=== PATIENT | male | born 2000 | race Caucasian/White ===

== ENCOUNTER 2022-11-12 22:06 | Inpatient (IN) | payer OTHER, SELFPAY ==
[2022-11-12 22:09] VITALS: BP 108/56; PULSE 149; RESP 28; TEMP 39.6; O2SAT 95; BMI 25.1
--- NOTE | 2022-11-12 22:21 | DI.RAD.S_ITS ---
PROCEDURE: XR CHEST 1V INDICATIONS: Eval for pneumonia TECHNIQUE: One view of the chest was acquired. COMPARISON: None. FINDINGS: Surgical changes and devices: None. Lungs and pleura: Lungs are clear. No pleural effusions or pneumothorax. Mediastinum: Mediastinal contours appear normal. Heart size is normal. Bones and chest wall: No suspicious bony lesions. Overlying soft tissues appear unremarkable. IMPRESSION: 1. No acute cardiopulmonary disease. Dictated by: Ru Tyler M.D. on 11/12/2022 at 23:19 Approved by: Ru Tyler M.D. on 11/12/2022 at 23:20
[2022-11-12] MEDS: IBUPROFEN 400 MG TABLET 800 MG PO (22:34)
[2022-11-12] MEDS: SODIUM CHLORIDE 0.9% 1,000 ML 1000 ML IV ×2 (22:34→23:37)
[2022-11-12 22:56] VITALS: PULSE 143; O2SAT 94
--- NOTE | 2022-11-12 22:56 | ED_ITS ---
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 This was diagnosed when he was 11 years old after presenting with fevers and joint pain. He was admitted to the hospital for several days. Had an ICU stay. 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 Patient was followed by pediatric Rheumatology at [facility]. Was on immunosuppressants for period of time but subsequently these were discontinued it he has not been on any immunosuppressant since 2012. He has also subsequently been discharged from the pediatric rheuma tology clinic. 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 He does have a history of asthma. Is on daily medications for this. Is here for evaluation of approximately 5 days of fevers and body aches. He is not having any joint pain. He does have a sore throat and a slight headache but no neck pain. No chest pain. Does have a cough. No abdominal pain. No nausea vomiting. No urinary symptoms. No change in bowel habits. No skin rashes. Patient has been taking Tylenol and ibuprofen. He was seen at an outside facility a couple days ago where he was tested for COVID/flu which were negative. He is not on any antibiotics. Comes in the emergency department today because he is had continu ed symptoms in his starting to feel worse. Related Data Allergies Allergy/AdvReac Type Severity Reaction Status Date / Time egg Allergy Anaphylaxis Verified 11/12/22 22:09 lorazepam [From Ativan] Allergy Hallucinati Verified 11/12/22 22:09 ng Review of Systems Review of Systems ROS Unobtainable: All systems reviewed & are unremarkable except as noted in HPI and below Patient History Medical History (Updated 11/13/22 @ 03:47 by Stalin Singh DO) Asthma Juvenile idiopathic arthritis Social History Smoking Status: Never smoker Smoking Status: Never smoker alcohol intake frequency: holidays/special occasions only Substance Use Type: does not use Exam Initial Vital Signs Initial Vital Signs: Vital Signs Temperature 103.2 F H 11/12/22 22:09 Pulse Rate 149 H 11/12/22 22:09 Respiratory Rate 28 H 11/12/22 22:09 Blood Pressure 108/56 L 11/12/22 22:09 Pulse Oximetry 95 11/12/22 22:09 Oxygen Delivery Method 11/12/22 22:09 Const General: cooperative, comfortable and No ill appearing HENMT Head: normal to inspection and normocephalic Chest Chest: normal inspection of the chest Resp Effort & Inspection: no respiratory distress and tachypneic Auscultation: clear to auscultation bilaterally Cardio Rate: tachycardic Rhythm: regular rhythm GI Inspection: normal to inspection Palpation: soft, No firm and No tender Skin General: no rashes or lesions noted Lesions: no lesions Neuro General: patient alert, patient awake, patient oriented x3 and moves all extremities Cognition: normal cognition Speech: speech normal Gait: normal gait Extrem General: normal to inspection and capillary refill normal Psych Appearance: grossly normal and well kempt Scores GCS Mai coma scale eye opening: Spontaneous Bledsoe coma scale verbal response: Orientated Ami coma scale motor response: Obey commands Bledsoe coma scale total score: 15 Course Orders Ordered: ED Orders 11/12/22 22:21 XR chest 1V Stat EKG-12 Lead Stat 11/12/22 23:00 Urinalysis and Microscopic Stat Urine Culture Stat 11/12/22 23:02 Respiratory Panel (Film Array) Stat 11/12/22 23:09 Complete Blood Count AUTO DIFF Stat Comprehensive Metabolic Panel Stat Lactate (Lactic Acid) Stat Lipase Stat Procalcitonin Stat 11/12/22 23:11 Blood Culture Stat 11/13/22 00:11 Ferritin Stat 11/13/22 00:12 LDH [Lactate Dehydrogenase] Stat Partial Thromboplastin Time Stat Prothrombin Time INR Stat 11/13/22 00:13 D Dimer Stat 11/13/22 00:14 Fibrinogen Stat Vancomycin HCl (Vancomycin) 1,000 mg in 200 mls @ 200 mls/hr IV NOW ONE Stop: 11/13/22 04:38 Discontinued Medications Sodium Chloride (Normal Saline 0.9%) 1,000 mls @ 1,000 mls/hr IV BOLUS ONE Stop: 11/12/22 23:18 Last Infusion: 11/12/22 23:35 Dose: 0 mls/hr Documented By: Admin: 11/12/22 22:34 Dose: 1,000 mls/hr Documented By: TETE Ceftriaxone Sodium 1,000 mg/ (Sodium Chloride) 100 mls @ 200 mls/hr IV NOW ONE Stop: 11/12/22 23:19 Last Infusion: 11/12/22 23:59 Dose: 0 mls/hr Documented By: Admin: 11/12/22 23:28 Dose: 200 mls/hr Documented By: TETE Sodium Chloride (Normal Saline 0.9%) 1,000 mls @ 1,000 mls/hr IV BOLUS ONE Stop: 11/13/22 00:28 Last Infusion: 11/13/22 00:36 Dose: 0 mls/hr Documented By: Admin: 11/12/22 23:37 Dose: 1,000 mls/hr Documented By: TETE Ibuprofen (Ibuprofen 400 Mg Tablet) 800 mg PO NOW ONE Stop: 11/12/22 22:20 Last Admin: 11/12/22 22:34 Dose: 800 mg Documented By: TETE Vital Signs Vital signs: Vital Signs - 8 hr 11/12/22 22:09 11/12/22 23:39 11/12/22 23:40 Temperature 103.2 F H 100.5 F H 100.5 F H Pulse Rate 149 H Respiratory Rate 28 H Blood Pressure 108/56 L Pulse Oximetry 95 Oxygen Delivery Method Room Air 11/12/22 22:56 11/12/22 23:00 11/12/22 23:30 Temperature Pulse Rate 143 H 136 H 135 H Respiratory Rate Blood Pressure Pulse Oximetry 94 96 94 Oxygen Delivery Method 11/13/22 00:00 11/13/22 00:04 11/13/22 00:04 Temperature Pulse Rate 124 H 125 H Respiratory Rate 21 22 Blood Pressure 106/52 L Pulse Oximetry 94 94 Oxygen Delivery Method 11/13/22 00:30 11/13/22 00:30 11/13/22 01:00 Temperature Pulse Rate 121 H Respiratory Rate 21 Blood Pressure 104/50 L 111/52 L Pulse Oximetry 94 Oxygen Delivery Method 11/13/22 01:00 11/13/22 01:30 11/13/22 01:30 Temperature Pulse Rate 122 H 118 H Respiratory Rate 22 21 Blood Pressure 100/55 L Pulse Oximetry 94 94 Oxygen Delivery Method 11/13/22 01:41 Temperature Pulse Rate 113 H Respiratory Rate Blood Pressure Pulse Oximetry Oxygen Delivery Method Medical Decision Making Medical Records Medical records reviewed: Yes I reviewed the patient's medical records. Lab Data Lab results reviewed: Yes I reviewed the patient's lab results. 11/12/22 23:09 11/12/22 23:09 Labs: Lab Results 11/12/22 11/12/22 11/12/22 Range/Units 23:00 23:02 23:09 WBC 6.7 (4.5-11.0) X10^3/uL RBC 3.96 L (4.5-5.9) X10^6/uL Hgb 11.8 L (13.5-17.5) g/dL Hct 35.3 L (41-53) % MCV 89.1 (80-100) fL MCH 29.9 (26-34) PG MCHC 33.5 (30-36) % RDW 12.9 (11.6-14.8) % Plt Count 168 (150-400) X10^3/uL Neut % (Auto) Not Reportable Lymph % (Auto) Not Reportable Dauphin % (Auto) Not Reportable Eos % (Auto) Not Reportable Baso % (Auto) Not Reportable Lymph # (Auto) Not Reportable Da[place]hin # (Auto) Not Reportable Baso # (Auto) Not Reportable Total Counted 100 Seg Neutrophils % 72.0 H (38-70) % Band Neutrophils % 7.0 (3-7) % Lymphocytes % (Manual) 11.0 L (25-45) % Monocytes % (Manual) 8.0 (2-11) % Eosinophils % (Manual) 2.0 (2-4) % Neutrophils # (Manual) 5293 (9649-5106) /uL RBC Morphology Normal morphology PT (10.1-12.7) SECONDS INR (0.9-1.3) APTT (26-36) SECONDS Fibrinogen (211-428) mg/dL D-Dimer (<500) ng/ml Sodium (137-145) mmol/L Potassium (3.4-5.1) mmol/L Chloride (98-107) mmol/L Carbon Dioxide (22-32) mmol/L BUN (9-20) mg/dL Creatinine (0.66-1.25) mg/dL Estimated GFR (>60) mL/min BUN/Creatinine Ratio (6-22) Glucose (70-100) mg/dL Lactate (0.7-2.1) mmol/L Calcium (8.4-10.2) mg/dL Ferritin (18-464) ng/mL Total Bilirubin (0.2-1.3) mg/dL AST (17-59) IU/L ALT (<50) IU/L Alkaline Phosphatase (38-126) U/L Lactate Dehydrogenase (120-246) U/L Total Protein (6.3-8.2) g/dL Albumin (3.5-5.0) g/dL Globulin (1.7-4.1) g/dL Albumin/Globulin Ratio (1.0-2.8) Lipase (23-300) U/L Procalcitonin (<0.5) ng/mL Urine Color Yellow Urine Appearance Clear Urine pH 6.5 (4.5-8.0) Ur Specific Malone 1.010 (1.000-1.035) Urine Protein Negative (Negative) Urine Glucose (UA) Negative (Negative) g/dL Urine Ketones Negative (NEGATIVE) Urine Occult Blood Negative (Negative) Urine Nitrate Negative (Negative) Urine Bilirubin Negative (NEGATIVE) Urine Urobilinogen 4.0 H (0.2) E.U./dL Ur Leukocyte Esterase Negative (NEGATIVE) Urine RBC 0-1/hpf (0-5/HPF) Urine WBC None seen (0-5/HPF) Ur Squamous Epith Cells 0-1 /hpf (0-5/HPF) Amorphous Sediment 1+ Urine Bacteria Occasional (0-1) (None) Chlamy pneumoniae PCR Not detected (Not Detect) Adenovirus (PCR) Not detected (Not Detect) B. pertussis DNA (PCR) Not detected (Not Detecte) B.parapertussis DNA PCR Not detected (Not Detecte) Coronavirus OC43 (PCR) Not detected (Not Detect) Coronavirus HKU1 (PCR) Not detected (Not Detect) Coronavirus 229E (PCR) Not detected (Not Detect) SARS-CoV-2 (PCR) Not detected (Not Detecte) Coronavirus NL63 (PCR) Not detected (Not Detect) Human Metapneumovir PCR Not detected (Not Detect) Influenza Type A (PCR) Not detected (Not Detect) Influenza Type B (PCR) Not detected (Not Detect) M. pneumoniae (PCR) Not detected (Not Detect) Parainfluenza 1 (PCR) Not detected (Not Detect) Parainfluenza 2 (PCR) Not detected (Not Detect) Parainfluenza 3 (PCR) Not detected (Not Detect) Parainfluenza 4 (PCR) Not detected (Not Detect) RSV (PCR) Not detected (Not Detect) Entero/Rhino (PCR) Not detected (Not Detect) 11/12/22 11/12/22 11/12/22 Range/Units 23:09 23:09 23:09 WBC (4.5-11.0) X10^3/uL RBC (4.5-5.9) X10^6/uL Hgb (13.5-17.5) g/dL Hct (41-53) % MCV (80-100) fL MCH (26-34) PG MCHC (30-36) % RDW (11.6-14.8) % Plt Count (150-400) X10^3/uL Neut % (Auto) Lymph % (Auto) Dauphin % (Auto) Eos % (Auto) Baso % (Auto) Lymph # (Auto) Dauphin # (Auto) Baso # (Auto) Total Counted Seg Neutrophils % (38-70) % Band Neutrophils % (3-7) % Lymphocytes % (Manual) (25-45) % Monocytes % (Manual) (2-11) % Eosinophils % (Manual) (2-4) % Neutrophils # (Manual) (4022-3796) /uL RBC Morphology PT (10.1-12.7) SECONDS INR (0.9-1.3) APTT (26-36) SECONDS Fibrinogen (211-428) mg/dL D-Dimer (<500) ng/ml Sodium 137 (137-145) mmol/L Potassium 3.4 (3.4-5.1) mmol/L Chloride 103 (98-107) mmol/L Carbon Dioxide 25 (22-32) mmol/L BUN 12 (9-20) mg/dL Creatinine 0.98 (0.66-1.25) mg/dL Estimated GFR > 60 (>60) mL/min BUN/Creatinine Ratio 12.2 (6-22) Glucose 134 H (70-100) mg/dL Lactate 1.0 (0.7-2.1) mmol/L Calcium 7.9 L (8.4-10.2) mg/dL Ferritin (18-464) ng/mL Total Bilirubin 0.4 (0.2-1.3) mg/dL AST 24 (17-59) IU/L ALT 17 (<50) IU/L Alkaline Phosphatase 84 (38-126) U/L Lactate Dehydrogenase (120-246) U/L Total Protein 5.9 L (6.3-8.2) g/dL Albumin 3.2 L (3.5-5.0) g/dL Globulin 2.7 (1.7-4.1) g/dL Albumin/Globulin Ratio 1.2 (1.0-2.8) Lipase 30 (23-300) U/L Procalcitonin 3.70 H (<0.5) ng/mL Urine Color Urine Appearance Urine pH (4.5-8.0) Ur Specific Malone (1.000-1.035) Urine Protein (Negative) Urine Glucose (UA) (Negative) g/dL Urine Ketones (NEGATIVE) Urine Occult Blood (Negative) Urine Nitrate (Negative) Urine Bilirubin (NEGATIVE) Urine Urobilinogen (0.2) E.U./dL Ur Leukocyte Esterase (NEGATIVE) Urine RBC (0-5/HPF) Urine WBC (0-5/HPF) Ur Squamous Epith Cells (0-5/HPF) Amorphous Sediment Urine Bacteria (None) Chlamy pneumoniae PCR (Not Detect) Adenovirus (PCR) (Not Detect) B. pertussis DNA (PCR) (Not Detecte) B.parapertussis DNA PCR (Not Detecte) Coronavirus OC43 (PCR) (Not Detect) Coronavirus HKU1 (PCR) (Not Detect) Coronavirus 229E (PCR) (Not Detect) SARS-CoV-2 (PCR) (Not Detecte) Coronavirus NL63 (PCR) (Not Detect) Human Metapneumovir PCR (Not Detect) Influenza Type A (PCR) (Not Detect) Influenza Type B (PCR) (Not Detect) M. pneumoniae (PCR) (Not Detect) Parainfluenza 1 (PCR) (Not Detect) Parainfluenza 2 (PCR) (Not Detect) Parainfluenza 3 (PCR) (Not Detect) Parainfluenza 4 (PCR) (Not Detect) RSV (PCR) (Not Detect) Entero/Rhino (PCR) (Not Detect) 11/12/22 11/12/22 11/12/22 Range/Units 23:09 23:09 23:09 WBC (4.5-11.0) X10^3/uL RBC (4.5-5.9) X10^6/uL Hgb (13.5-17.5) g/dL Hct (41-53) % MCV (80-100) fL MCH (26-34) PG MCHC (30-36) % RDW (11.6-14.8) % Plt Count (150-400) X10^3/uL Neut % (Auto) Lymph % (Auto) Dauphin % (Auto) Eos % (Auto) Baso % (Auto) Lymph # (Auto) Dauphin # (Auto) Baso # (Auto) Total Counted Seg Neutrophils % (38-70) % Band Neutrophils % (3-7) % Lymphocytes % (Manual) (25-45) % Monocytes % (Manual) (2-11) % Eosinophils % (Manual) (2-4) % Neutrophils # (Manual) (4052-5903) /uL RBC Morphology PT 14.8 H (10.1-12.7) SECONDS INR 1.3 (0.9-1.3) APTT 29 (26-36) SECONDS Fibrinogen (211-428) mg/dL D-Dimer (<500) ng/ml Sodium (137-145) mmol/L Potassium (3.4-5.1) mmol/L Chloride (98-107) mmol/L Carbon Dioxide (22-32) mmol/L BUN (9-20) mg/dL Creatinine (0.66-1.25) mg/dL Estimated GFR (>60) mL/min BUN/Creatinine Ratio (6-22) Glucose (70-100) mg/dL Lactate (0.7-2.1) mmol/L Calcium (8.4-10.2) mg/dL Ferritin 1480 H (18-464) ng/mL Total Bilirubin (0.2-1.3) mg/dL AST (17-59) IU/L ALT (<50) IU/L Alkaline Phosphatase (38-126) U/L Lactate Dehydrogenase 235 (120-246) U/L Total Protein (6.3-8.2) g/dL Albumin (3.5-5.0) g/dL Globulin (1.7-4.1) g/dL Albumin/Globulin Ratio (1.0-2.8) Lipase (23-300) U/L Procalcitonin (<0.5) ng/mL Urine Color Urine Appearance Urine pH (4.5-8.0) Ur Specific Malone (1.000-1.035) Urine Protein (Negative) Urine Glucose (UA) (Negative) g/dL Urine Ketones (NEGATIVE) Urine Occult Blood (Negative) Urine Nitrate (Negative) Urine Bilirubin (NEGATIVE) Urine Urobilinogen (0.2) E.U./dL Ur Leukocyte Esterase (NEGATIVE) Urine RBC (0-5/HPF) Urine WBC (0-5/HPF) Ur Squamous Epith Cells (0-5/HPF) Amorphous Sediment Urine Bacteria (None) Chlamy pneumoniae PCR (Not Detect) Adenovirus (PCR) (Not Detect) B. pertussis DNA (PCR) (Not Detecte) B.parapertussis DNA PCR (Not Detecte) Coronavirus OC43 (PCR) (Not Detect) Coronavirus HKU1 (PCR) (Not Detect) Coronavirus 229E (PCR) (Not Detect) SARS-CoV-2 (PCR) (Not Detecte) Coronavirus NL63 (PCR) (Not Detect) Human Metapneumovir PCR (Not Detect) Influenza Type A (PCR) (Not Detect) Influenza Type B (PCR) (Not Detect) M. pneumoniae (PCR) (Not Detect) Parainfluenza 1 (PCR) (Not Detect) Parainfluenza 2 (PCR) (Not Detect) Parainfluenza 3 (PCR) (Not Detect) Parainfluenza 4 (PCR) (Not Detect) RSV (PCR) (Not Detect) Entero/Rhino (PCR) (Not Detect) 11/12/22 11/12/22 Range/Units 23:09 23:09 WBC (4.5-11.0) X10^3/uL RBC (4.5-5.9) X10^6/uL Hgb (13.5-17.5) g/dL Hct (41-53) % MCV (80-100) fL MCH (26-34) PG MCHC (30-36) % RDW (11.6-14.8) % Plt Count (150-400) X10^3/uL Neut % (Auto) Lymph % (Auto) Dauphin % (Auto) Eos % (Auto) Baso % (Auto) Lymph # (Auto) Dauphin # (Auto) Baso # (Auto) Total Counted Seg Neutrophils % (38-70) % Band Neutrophils % (3-7) % Lymphocytes % (Manual) (25-45) % Monocytes % (Manual) (2-11) % Eosinophils % (Manual) (2-4) % Neutrophils # (Manual) (0736-8179) /uL RBC Morphology PT (10.1-12.7) SECONDS INR (0.9-1.3) APTT (26-36) SECONDS Fibrinogen 679 H (211-428) mg/dL D-Dimer 4454 H (<500) ng/ml Sodium (137-145) mmol/L Potassium (3.4-5.1) mmol/L Chloride (98-107) mmol/L Carbon Dioxide (22-32) mmol/L BUN (9-20) mg/dL Creatinine (0.66-1.25) mg/dL Estimated GFR (>60) mL/min BUN/Creatinine Ratio (6-22) Glucose (70-100) mg/dL Lactate (0.7-2.1) mmol/L Calcium (8.4-10.2) mg/dL Ferritin (18-464) ng/mL Total Bilirubin (0.2-1.3) mg/dL AST (17-59) IU/L ALT (<50) IU/L Alkaline Phosphatase (38-126) U/L Lactate Dehydrogenase (120-246) U/L Total Protein (6.3-8.2) g/dL Albumin (3.5-5.0) g/dL Globulin (1.7-4.1) g/dL Albumin/Globulin Ratio (1.0-2.8) Lipase (23-300) U/L Procalcitonin (<0.5) ng/mL Urine Color Urine Appearance Urine pH (4.5-8.0) Ur Specific Malone (1.000-1.035) Urine Protein (Negative) Urine Glucose (UA) (Negative) g/dL Urine Ketones (NEGATIVE) Urine Occult Blood (Negative) Urine Nitrate (Negative) Urine Bilirubin (NEGATIVE) Urine Urobilinogen (0.2) E.U./dL Ur Leukocyte Esterase (NEGATIVE) Urine RBC (0-5/HPF) Urine WBC (0-5/HPF) Ur Squamous Epith Cells (0-5/HPF) Amorphous Sediment Urine Bacteria (None) Chlamy pneumoniae PCR (Not Detect) Adenovirus (PCR) (Not Detect) B. pertussis DNA (PCR) (Not Detecte) B.parapertussis DNA PCR (Not Detecte) Coronavirus OC43 (PCR) (Not Detect) Coronavirus HKU1 (PCR) (Not Detect) Coronavirus 229E (PCR) (Not Detect) SARS-CoV-2 (PCR) (Not Detecte) Coronavirus NL63 (PCR) (Not Detect) Human Metapneumovir PCR (Not Detect) Influenza Type A (PCR) (Not Detect) Influenza Type B (PCR) (Not Detect) M. pneumoniae (PCR) (Not Detect) Parainfluenza 1 (PCR) (Not Detect) Parainfluenza 2 (PCR) (Not Detect) Parainfluenza 3 (PCR) (Not Detect) Parainfluenza 4 (PCR) (Not Detect) RSV (PCR) (Not Detect) Entero/Rhino (PCR) (Not Detect) Imaging Data Chest x-ray: Radiologist's Impression: No acute abnormality ECG Data Attestation: I personally reviewed and interpreted this ECG as follows: Interpretation: Sinus tachycardia Ventricular rate 140 Normal axis Normal QRS Normal QTC No ST T wave changes MDM Narrative Medical decision making narrative: Prior to the patient's arrival I received a phone call from who is the patient's prior dialysis biomed technician who informed me of his prior rheumatologic diagnosis and was able to send prior notes from his visit several years ago in hospital stay. Today in the emergency department the patient arrived tachycardic and febrile. Was not hypotensive. But a GCS of 15. Blood cultures were obtained. Labs obtained. Antibiotics started. Patient did receive fluids but not to the 30 cc/kilogram of fluid because he had a normal lactate and was mentating appropriately. Patient was also tolerating oral intake. No definitive source of infection found. Patient does not have any findings consistent with meningitis, pneumonia, intra-abdominal pathology, skin rash or urinary tract infection. His respiratory panel was negative. Lungs were clear. No wheezing despite his history of asthma. Patient has a normal white count and normal lactate but does have an elevated procalcitonin. Patient does have normal LFTs but does have a elevation in his ferritin and fibrinogen and D- dimer. D-dimer was ordered for further evaluation of his potential rheumatologic issue not because of a concern for pulmonary embolism. I did have a discussion with Dr. Hutchison with rheumatology at the [facility]. I discussed the patient's case with him. We discussed his labs. He stated that since the patient is not on any immunosuppressant medication given his labs today he recommended treating the patient like any other non immunocompromised individuals in this situation. That would mean this case blood cultures and antibiotics until either a source of infection is found or blood cultures were negative and the patient started to feel better. He did not recommend starting any steroids. He recommended following the patient's LFTs and ferritin and white blood cell count. He stated that someone with MAC elevations in his LFTs, elevations in his ferritin and a decreasing white blood cell count would be the 1st indication that potentially he is having MAC. Patient does require admission to the hospital for further evaluation and treatment. Discussed the need for admission with the patient and his mother who is at bedside. They expressed understanding. I then discussed the case with SANDOR Lizama the [facility] hospital provider who will admit for further evaluation and treatment. Discharge Plan Departure Patient Disposition: Admitted As Inpatient Clinical Impression: Fever of unknown origin Admit Date/Time: 11/13/22 03:40
[2022-11-12 23:00] VITALS: PULSE 136; O2SAT 96
[2022-11-12] MEDS: cefTRIAXone 1,000 MG in SODIUM CHLORIDE 0.9% 100 ML 200 MG IV (23:28)
[2022-11-12 23:30] VITALS: PULSE 135; O2SAT 94
[2022-11-12 23:36] LABS: Alanine Aminotransferase 17 IU/L (<50); Albumin 3.2 g/dL (3.5-5.0); Albumin Globulin Ratio 1.2 (1.0-2.8); Alkaline Phosphatase 84 U/L (38-126); Aspartate Aminotransferase 24 IU/L (17-59); BUN Creatinine Ratio 12.2 (6-22); Bilirubin Total 0.4 mg/dL (0.2-1.3); Blood Urea Nitrogen 12 mg/dL (9-20); Calcium 7.9 mg/dL (8.4-10.2); Carbon Dioxide 25 mmol/L (22-32); Chloride 103 mmol/L (98-107); Estimated Glomerular Filt Rate > 60 mL/min (>60); Globulin 2.7 g/dL (1.7-4.1); Glucose 134 mg/dL (70-100); HEMOLYSIS < 15 (0-50); Potassium 3.4 mmol/L (3.4-5.1); Sodium 137 mmol/L (137-145); Total Protein 5.9 g/dL (6.3-8.2)
[2022-11-12 23:37] LABS: Add Manual Diff / Slide Review YES; Hematocrit 35.3 % (41-53); Hemoglobin 11.8 g/dL (13.5-17.5); Mean Corpuscular HGB Conc 33.5 % (30-36); Mean Corpuscular Hemoglobin 29.9 PG (26-34); Mean Corpuscular Volume 89.1 fL (80-100); Platelet Count 168 X10^3/uL (150-400); Red Blood Cell Count 3.96 X10^6/uL (4.5-5.9); Red Cell Distribution Width 12.9 % (11.6-14.8); White Blood Cell Count 6.7 X10^3/uL (4.5-11.0)
[2022-11-12 23:39] VITALS: TEMP 38.1
[2022-11-12 23:40] VITALS: TEMP 38.1
[2022-11-12 23:47] LABS: Appearance Urine UA CLEAR; Bilirubin Urine UA NEGATIVE (NEGATIVE); Color Urine UA YELLOW; Glucose Urine UA NEGATIVE (Negative); Ketones Urine UA NEGATIVE (NEGATIVE); Leukocyte Esterase Urine UA NEGATIVE (NEGATIVE); Nitrite Urine UA NEGATIVE (Negative); Occult Blood Urine UA NEGATIVE (Negative); Protein Urine UA NEGATIVE (Negative); pH Urine UA 6.5 (4.5-8.0)
[2022-11-12 23:54] LABS: RBC Urine 0-1/HPF (0-5/HPF); Squamous Epithelial Cell Urine 0-1 /HPF (0-5/HPF); WBC Urine None Seen (0-5/HPF)
[2022-11-12 23:55] LABS: Amorphous Sediment Urine 1+; Bacteria Urine Occasional (0-1)
[2022-11-12 23:59] LABS: Adenovirus Not Detected (Not Detect); B. parapertussis Not Detected (Not Detecte); Bordetella pertussis Not Detected (Not Detecte); Chlamydophila pneumoniae Not Detected (Not Detect); Coronavirus 229E Not Detected (Not Detect); Coronavirus HKU1 Not Detected (Not Detect); Coronavirus NL 63 Not Detected (Not Detect); Coronavirus OC43 Not Detected (Not Detect); Human Metapneumovirus Not Detected (Not Detect); Human Rhinovirus/Enterovirus Not Detected (Not Detect); Influenza A Not Detected (Not Detect); Influenza B Not Detected (Not Detect); Mycoplasma pneumoniae Not Detected (Not Detect); Parainfluenza Virus 1 Not Detected (Not Detect); Parainfluenza Virus 2 Not Detected (Not Detect); Parainfluenza Virus 3 Not Detected (Not Detect); Parainfluenza Virus 4 Not Detected (Not Detect); Respiratory Syncytial Virus Not Detected (Not Detect); SARS- CoV-2 Not Detected (Not Detecte)
[2022-11-13] VITALS (50 sets, daily range): BP systolic 82–127; BP diastolic 48–70; PULSE 102–148; RESP 17–37; TEMP 36.9–38.1; O2SAT 90–99; BMI 25.9
[2022-11-13 00:08] LABS: Neutrophils Absolute Manual 5293 /uL (3000-5900); RBC Morphology Normal Morphology; Total Cells Counted 100
[2022-11-13 00:24] LABS: INR 1.3 (0.9-1.3); Prothrombin Time 14.8 SECONDS (10.1-12.7)
[2022-11-13 00:27] LABS: PTT Partial Thromboplastin Tim 29 SECONDS (26-36)
[2022-11-13 00:31] LABS: Lipase 30 U/L (23-300)
[2022-11-13 00:32] LABS: Lactate Dehydrogenase 235 U/L (120-246)
[2022-11-13 00:37] LABS: Fibrinogen 679 mg/dL (211-428)
[2022-11-13 00:51] LABS: D Dimer 4454 ng/ml (<500)
[2022-11-13 02:05] LABS: Ferritin 1480 ng/mL (18-464)
[2022-11-13] MEDS: VANCOMYCIN 1,000 MG/200 ML PIGGYBACK 200 MG IV (03:59)
--- NOTE | 2022-11-13 04:41 | DI.ECHO.S_ITS ---
[facility] +---------+ : : [address] [place] : : : : [id number] : : : : Phone: [phone] Echocardiogram Report + + :Name: SIMRAN FIGUEROA Study Date: 11/13/2022 Height: 69 in : [facility] ReadingLocation: Weight: 170 lb : : Gender: Male BSA: 1.9 m2 : :: 2000 Age: 22 yrs BP: 103/51 mmHg: :Reason For Study: FEVER, IDIOPATHIC JUVENILE ARTHRITIS : :Ordering Physician: ANDREA, : :SPEEDY Performed By: MARITZA THORNE : :Referring: SPEEDY MENDEZ : + + Interpretation Summary Likely sinus tachycardia with heart rate 115-130 bpm however atrial tachycardia cannot be ruled out. The left ventricle is normal in size. Left ventricular ejection fraction is estimated to be 50 +/- 5%. The right ventricle is borderline dilated. The right ventricular systolic function is normal. No significant valvular pathology seen. The IVC is of normal diameter and collapses greater than 50% with a sniff. This suggests a low right atrial pressure of 3 mm Hg. No obvious valvular vegetation seen. If clinical suspicion for endocarditis is high, consider YESSY. Procedure: A two-dimensional transthoracic echocardiogram with color flow and Doppler was performed. There is no prior echocardiogram noted for this patient. The study quality was technically adequate. The heart rate ranged between 115-130 bpm during the study. Likely sinus tachycardia with heart rate 115-130 bpm however atrial tachycardia cannot be ruled out. Left Ventricle: The left ventricle is normal in size. There is normal left ventricular wall thickness. There is no thrombus. Left ventricular systolic function is mildly reduced. Left ventricular ejection fraction is estimated to be 50 +/- 5%. There are no focal wall motion abnormalities. Diastolic function could not be accurately assessed due to tachycardia. Right Ventricle: The right ventricle is borderline dilated. The right ventricular systolic function is normal. Atria: The left atrial size is normal. The right atrium is normal in size. There is no Doppler evidence for an interatrial shunt. Mitral Valve: The mitral valve is normal. There is trace mitral regurgitation. Aortic Valve: The aortic valve is normal in structure and function. The aortic valve is trileaflet. There is no aortic valve stenosis. No aortic regurgitation is present. Tricuspid Valve: The tricuspid valve is normal in structure and function. There is trace tricuspid regurgitation. The right ventricular systolic pressure is estimated to be at least 24 mmHg based on an estimated right atrial pressure of 3 mm Hg. Pulmonic Valve: The pulmonic valve leaflets are thin and pliable; valve motion is normal. There is mild pulmonic regurgitation. Great Vessels: The aortic root is normal size. The aortic arch could not be visualized. The IVC is of normal diameter and collapses greater than 50% with a sniff. This suggests a low right atrial pressure of 3 mm Hg. Pericardium/ Pleura There is no pericardial effusion. There is no pleural effusion. MMode/2D Measurements & Calculations LVIDd: 4.9 cm LVOT diam: 2.1 cm LVIDs: 3.6 cm Ao root diam: 2.9 cm FS: 26.2 % asc Aorta Diam: 2.6 cm IVSd: 0.88 cm LVPWd: 0.96 cm LV green. diameter/BSA (cm/m^2): 2.5 LV sys. diameter/BSA (cm/m^2): 1.9 LA A2 area: 15.6 cm2 RA long axis: 4.1 cm LA A4 area: 15.2 cm2 RA area: 15.1 cm2 LA length (vol): 4.5 cm RA vol: 47.2 ml LA vol: 44.5 ml RA : 24.5 ml/m2 LA vol index: 23.1 ml/m2 IVC diam: 1.6 cm RVD1 (basal): 4.3 cm RVD2 (mid): 3.5 cm TAPSE: 2.2 cm Doppler Measurements & Calculations Ao V2 max: 122.5 cm/sec LVOT Max Perry: 111.2 cm/sec Ao V2 mean: 92.9 cm/sec LV V1 max P.9 mmHg Ao max P.0 mmHg LV V1 VTI: 20.9 cm Ao mean P.7 mmHg CANDICE(I,D): 3.2 cm2 Ao V2 VTI: 21.5 cm CANDICE(V,D): 3.0 cm2 sev ratio: 0.97 CANDICE indexed to BSA (cm^2/m^2): 1.7 Med Peak E' Perry: 14.9 cm/sec TR max perry: 228.2 cm/sec Lat Peak E' Perry: 19.6 cm/sec TR max P.8 mmHg PA V2 max: 81.6 cm/sec PA V2 mean: 62.6 cm/sec PA mean P.7 mmHg PA pr(Accel): 29.3 mmHg SV(LVOT): 69.7 ml Reading Physician:10:07 AM
--- NOTE | 2022-11-13 04:44 | P.HP_ITS ---
History of Present Illness History of Present Illness Date Patient Seen: 11/13/22 Time Patient Seen: 04:45 Chief complaint: Viral Symptoms Narrative: Abdullahi Aburto is a 22-year-old male who has a history of eczema, systemic juvenile idiopathic arthritis, monoclonal gannopathy of undetermined significance (MGUS), MAS, mild persistent asthma.? This was diagnosed when he was 11 years old after presenting with fevers and joint pain.? He was admitted to the hospital for several days.? Had an ICU stay.? 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 Patient was followed by pediatric Rheumatology at [facility].? Was on immunosuppressants for period of time but subsequently these were discontinued it he has not been on any immunosuppressant since 2013.? He has also subsequ ently been discharged from the pediatric rheumatology clinic.? 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 He does have a history of asthma.? Is on daily medications for this.? Is here for evaluation of approximately 5 days of fevers, chills, and body aches.? Midsternal chest pressure with deep breathing, just generalized diffuse all-over body tenderness aches. He is not having any joint pain.? He does have a sore throat and a slight headache but no neck pain.? No chest pain.? Does have a cough.? No abdominal pain.? No nausea vomiting.? No urinary symptoms.? No change in bowel habits.? No skin rashes. Is having some mild flare of eczema to the right AC. Patient has been taking Tylenol and ib uprofen.? He was seen at an outside facility a couple days ago where he was tested for COVID/flu which were negative.? He is not on any antibiotics.? Comes in the emergency department today because he is had continued symptoms in his starting to feel worse. In ED patient presented with a fever 103.2, 108/56, tachycardic 149, tachypneic 28, 95% on room air. Patient states that he is feeling improved from when he 1st came to the ED department, his mother is at bedside. On admit patient denies headachechanges in vision, difficulty swallowing, speech impairment, numbness, tingling, difficulty with ambulation, recent falls, head injury, LOC, cough, recent exposure to illness, abdominal pain, urinary incontinence/retention, dysuria, frequency, urgency, hematuria, bowel changes, constipation, incontinence, melena, recent changes to medication, illness, injury, or trauma. On admit temp 100.5? 100/50 tachycardic 113, mildly tachypneic 21, O2 saturation 94% on room air. H&H 11.8/35.3, glucose 134, albumin 3.2, total protein 5.9, procalcitonin 3.7, urine:+ urobilinogen 4.0-culture pending, respiratory panel negative. CXR negative for acute cardiopulmonary process, EKG: ST ventricular rate [address] or T-wave changes. The following labs are used in the diagnosis or exclusion of MAS vs.HLH in IJA: WBC 6.7, PLT 168 (>181,000), AST 24 (<48), fibrinogen 679 (<360), ferritin 1480 (>684). LDH 235. Adenovirus negative Dr. Singh in the ED did consult with rheumatology Dr. Montoya @ . Patient admitted for fever of unknown etiology/origin in the setting of IJA, concern for MAS macrophage activation syndrome/HLH. 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 Family & Social History Family History (Updated 11/13/22 @ 05:12 by NILSON Bolanos) Mother Asthma Sister Asthma Safety & Behavioral: Feels Safe in Current Yes Environment Been Physically Hurt or No Threatened By a Person Tobacco & Substance use: Smoking Status Never smoker alcohol intake frequency holiday/special occasion Substance Use Type does not use Meds Home Medications and Allergies Home Medications Medication Instructions Recorded Confirmed Type cetirizine 10 mg tablet (Zyrtec) 10 mg PO DAILY PRN Allergic 11/13/22 11/13/22 History Symptoms epinephrine 0.3 mg/0.3 mL PRN PRN Anaphylaxis 11/13/22 History injection, auto-injector (Auvi-Q) fluticasone propionate 110 2 puff inhalation BID 11/13/22 11/13/22 History mcg/actuation HFA aerosol inhaler montelukast 10 mg tablet 10 mg PO DAILY 11/13/22 11/13/22 History ondansetron 4 mg disintegrating 4 mg PO PRN PRN Nausea 11/13/22 11/13/22 History tablet Allergies Allergy/AdvReac Type Severity Reaction Status Date / Time egg Allergy Anaphylaxis Verified 11/12/22 22:09 lorazepam [From Ativan] Allergy Hallucinati Verified 11/12/22 22:09 ng Review of Systems Review of Systems Narrative: All 12 point systems reviewed with the patient and are negative except otherwise documented. Exam Vital Signs (past 8 hours): - 11/12/22 22:09 11/12/22 23:39 11/12/22 23:40 Temperature 103.2 F H 100.5 F H 100.5 F H Pulse Rate 149 H Respiratory Rate 28 H Blood Pressure 108/56 L Pulse Oximetry 95 Oxygen Delivery Method Room Air 11/12/22 22:56 11/12/22 23:00 11/12/22 23:30 Temperature Pulse Rate 143 H 136 H 135 H Respiratory Rate Blood Pressure Pulse Oximetry 94 96 94 Oxygen Delivery Method 11/13/22 00:00 11/13/22 00:04 11/13/22 00:04 Temperature Pulse Rate 124 H 125 H Respiratory Rate 21 22 Blood Pressure 106/52 L Pulse Oximetry 94 94 Oxygen Delivery Method 11/13/22 00:30 11/13/22 00:30 11/13/22 01:00 Temperature Pulse Rate 121 H Respiratory Rate 21 Blood Pressure 104/50 L 111/52 L Pulse Oximetry 94 Oxygen Delivery Method 11/13/22 01:00 11/13/22 01:30 11/13/22 01:30 Temperature Pulse Rate 122 H 118 H Respiratory Rate 22 21 Blood Pressure 100/55 L Pulse Oximetry 94 94 Oxygen Delivery Method 11/13/22 01:41 11/13/22 02:00 11/13/22 02:00 Temperature Pulse Rate 113 H 115 H Respiratory Rate 18 Blood Pressure 99/53 L Pulse Oximetry 95 Oxygen Delivery Method 11/13/22 02:30 11/13/22 02:30 11/13/22 03:00 Temperature Pulse Rate 113 H Respiratory Rate 20 Blood Pressure 96/55 L 82/48 L Pulse Oximetry 95 Oxygen Delivery Method 11/13/22 03:00 11/13/22 03:30 11/13/22 03:30 Temperature Pulse Rate 108 H 113 H Respiratory Rate 19 22 Blood Pressure 89/56 L Pulse Oximetry 93 95 Oxygen Delivery Method 11/13/22 04:00 11/13/22 04:00 Temperature Pulse Rate 110 H Respiratory Rate 23 Blood Pressure 93/58 L Pulse Oximetry 94 Oxygen Delivery Method Oxygen Delivery Method Room Air Narrative Exam Narrative: General: Patient is a well-developed, well-nourished young male who appears fatigued and ill, in no acute distress at this time. -no lethargy, spontaneous bleeding/bruising, neurological signs or symptoms, altered mental status, hepatic or splenomegaly. HEENT: Normocephalic, atraumatic, extraocular muscles intact, oral pharynx is clear and mucous membranes are moist. Neck is supple and symmetric, trachea is midline, no adenopathy, no thyroid enlargement, nontender, no masses palpated. Negative for JVD Chest: Patient is taking shallow breaths is still slightly tachypneic, without nasal flaring or accessory muscle use. Unable to palpate midsternal area of chest to reproduce pain. Lungs: Auscultation of all lung card are clear without adventitious sounds, wheezes, rhonchi, or rales. Cardio: Tachycardic regular rate and rhythm without murmur, rubs, or gallops, no carotid bruit, no cardiac pulsations present. Abdomen: Soft nontender, negative for organomegaly no spleen or hepatomegaly, or masses. Bowel sounds are present in all 4 quadrants without guarding or rebound, no CVA tenderness. Musculoskeletal: Muscle strength and tone are equal within normal limits, no deformity, crepitus, effusions, cyanosis, clubbing or edema present. Full range of motion intact radial and pedal pulses are normal. Skin: Warm dry and intact without rashes, ulcerations or petechiae. Neuro: Alert and orientated x3, strength is +5/5 in all extremities, sensation to touch intact, no gross deficits noted of cranial nerves. Psych: Patient has a well-kept appearance, appropriate affect, mental status attitude thought context and judgment are appropriate for age. Objective Labs 11/12/22 23:09 11/12/22 23:09 Labs: Laboratory Results - last 24 hr 11/12/22 11/12/22 11/12/22 23:00 23:02 23:09 WBC 6.7 RBC 3.96 L Hgb 11.8 L Hct 35.3 L MCV 89.1 MCH 29.9 MCHC 33.5 RDW 12.9 Plt Count 168 Neut % (Auto) Not Reportable Lymph % (Auto) Not Reportable Hitchcock % (Auto) Not Reportable Eos % (Auto) Not Reportable Baso % (Auto) Not Reportable Lymph # (Auto) Not Reportable Hitchcock # (Auto) Not Reportable Baso # (Auto) Not Reportable Total Counted 100 Seg Neutrophils % 72.0 H Band Neutrophils % 7.0 Lymphocytes % (Manual) 11.0 L Monocytes % (Manual) 8.0 Eosinophils % (Manual) 2.0 Neutrophils # (Manual) 5293 RBC Morphology Normal morphology PT INR APTT Fibrinogen D-Dimer Sodium Potassium Chloride Carbon Dioxide BUN Creatinine Estimated GFR BUN/Creatinine Ratio Glucose Lactate Calcium Ferritin Total Bilirubin AST ALT Alkaline Phosphatase Lactate Dehydrogenase Total Protein Albumin Globulin Albumin/Globulin Ratio Lipase Procalcitonin Urine Color Yellow Urine Appearance Clear Urine pH 6.5 Ur Specific [place] 1.010 Urine Protein Negative Urine Glucose (UA) Negative Urine Ketones Negative Urine Occult Blood Negative Urine Nitrate Negative Urine Bilirubin Negative Urine Urobilinogen 4.0 H Ur Leukocyte Esterase Negative Urine RBC 0-1/hpf Urine WBC None seen Ur Squamous Epith Cells 0-1 /hpf Amorphous Sediment 1+ Urine Bacteria Occasional (0-1) Chlamy pneumoniae PCR Not detected Adenovirus (PCR) Not detected B. pertussis DNA (PCR) Not detected B.parapertussis DNA PCR Not detected Coronavirus OC43 (PCR) Not detected Coronavirus HKU1 (PCR) Not detected Coronavirus 229E (PCR) Not detected SARS-CoV-2 (PCR) Not detected Coronavirus NL63 (PCR) Not detected Human Metapneumovir PCR Not detected Influenza Type A (PCR) Not detected Influenza Type B (PCR) Not detected M. pneumoniae (PCR) Not detected Parainfluenza 1 (PCR) Not detected Parainfluenza 2 (PCR) Not detected Parainfluenza 3 (PCR) Not detected Parainfluenza 4 (PCR) Not detected RSV (PCR) Not detected Entero/Rhino (PCR) Not detected 11/12/22 11/12/22 11/12/22 23:09 23:09 23:09 WBC RBC Hgb Hct MCV MCH MCHC RDW Plt Count Neut % (Auto) Lymph % (Auto) Hitchcock % (Auto) Eos % (Auto) Baso % (Auto) Lymph # (Auto) Hitchcock # (Auto) Baso # (Auto) Total Counted Seg Neutrophils % Band Neutrophils % Lymphocytes % (Manual) Monocytes % (Manual) Eosinophils % (Manual) Neutrophils # (Manual) RBC Morphology PT INR APTT Fibrinogen D-Dimer Sodium 137 Potassium 3.4 Chloride 103 Carbon Dioxide 25 BUN 12 Creatinine 0.98 Estimated GFR > 60 BUN/Creatinine Ratio 12.2 Glucose 134 H Lactate 1.0 Calcium 7.9 L Ferritin Total Bilirubin 0.4 AST 24 ALT 17 Alkaline Phosphatase 84 Lactate Dehydrogenase Total Protein 5.9 L Albumin 3.2 L Globulin 2.7 Albumin/Globulin Ratio 1.2 Lipase 30 Procalcitonin 3.70 H Urine Color Urine Appearance Urine pH Ur Specific [place] Urine Protein Urine Glucose (UA) Urine Ketones Urine Occult Blood Urine Nitrate Urine Bilirubin Urine Urobilinogen Ur Leukocyte Esterase Urine RBC Urine WBC Ur Squamous Epith Cells Amorphous Sediment Urine Bacteria Chlamy pneumoniae PCR Adenovirus (PCR) B. pertussis DNA (PCR) B.parapertussis DNA PCR Coronavirus OC43 (PCR) Coronavirus HKU1 (PCR) Coronavirus 229E (PCR) SARS-CoV-2 (PCR) Coronavirus NL63 (PCR) Human Metapneumovir PCR Influenza Type A (PCR) Influenza Type B (PCR) M. pneumoniae (PCR) Parainfluenza 1 (PCR) Parainfluenza 2 (PCR) Parainfluenza 3 (PCR) Parainfluenza 4 (PCR) RSV (PCR) Entero/Rhino (PCR) 11/12/22 11/12/22 11/12/22 23:09 23:09 23:09 WBC RBC Hgb Hct MCV MCH MCHC RDW Plt Count Neut % (Auto) Lymph % (Auto) Hitchcock % (Auto) Eos % (Auto) Baso % (Auto) Lymph # (Auto) [place] # (Auto) Baso # (Auto) Total Counted Seg Neutrophils % Band Neutrophils % Lymphocytes % (Manual) Monocytes % (Manual) Eosinophils % (Manual) Neutrophils # (Manual) RBC Morphology PT 14.8 H INR 1.3 APTT 29 Fibrinogen D-Dimer Sodium Potassium Chloride Carbon Dioxide BUN Creatinine Estimated GFR BUN/Creatinine Ratio Glucose Lactate Calcium Ferritin 1480 H Total Bilirubin AST ALT Alkaline Phosphatase Lactate Dehydrogenase 235 Total Protein Albumin Globulin Albumin/Globulin Ratio Lipase Procalcitonin Urine Color Urine Appearance Urine pH Ur Specific [place] Urine Protein Urine Glucose (UA) Urine Ketones Urine Occult Blood Urine Nitrate Urine Bilirubin Urine Urobilinogen Ur Leukocyte Esterase Urine RBC Urine WBC Ur Squamous Epith Cells Amorphous Sediment Urine Bacteria Chlamy pneumoniae PCR Adenovirus (PCR) B. pertussis DNA (PCR) B.parapertussis DNA PCR Coronavirus OC43 (PCR) Coronavirus HKU1 (PCR) Coronavirus 229E (PCR) SARS-CoV-2 (PCR) Coronavirus NL63 (PCR) Human Metapneumovir PCR Influenza Type A (PCR) Influenza Type B (PCR) M. pneumoniae (PCR) Parainfluenza 1 (PCR) Parainfluenza 2 (PCR) Parainfluenza 3 (PCR) Parainfluenza 4 (PCR) RSV (PCR) Entero/Rhino (PCR) 11/12/22 11/12/22 23:09 23:09 WBC RBC Hgb Hct MCV MCH MCHC RDW Plt Count Neut % (Auto) Lymph % (Auto) Hitchcock % (Auto) Eos % (Auto) Baso % (Auto) Lymph # (Auto) [place]cock # (Auto) Baso # (Auto) Total Counted Seg Neutrophils % Band Neutrophils % Lymphocytes % (Manual) Monocytes % (Manual) Eosinophils % (Manual) Neutrophils # (Manual) RBC Morphology PT INR APTT Fibrinogen 679 H D-Dimer 4454 H Sodium Potassium Chloride Carbon Dioxide BUN Creatinine Estimated GFR BUN/Creatinine Ratio Glucose Lactate Calcium Ferritin Total Bilirubin AST ALT Alkaline Phosphatase Lactate Dehydrogenase Total Protein Albumin Globulin Albumin/Globulin Ratio Lipase Procalcitonin Urine Color Urine Appearance Urine pH Ur Specific [place] Urine Protein Urine Glucose (UA) Urine Ketones Urine Occult Blood Urine Nitrate Urine Bilirubin Urine Urobilinogen Ur Leukocyte Esterase Urine RBC Urine WBC Ur Squamous Epith Cells Amorphous Sediment Urine Bacteria Chlamy pneumoniae PCR Adenovirus (PCR) B. pertussis DNA (PCR) B.parapertussis DNA PCR Coronavirus OC43 (PCR) Coronavirus HKU1 (PCR) Coronavirus 229E (PCR) SARS-CoV-2 (PCR) Coronavirus NL63 (PCR) Human Metapneumovir PCR Influenza Type A (PCR) Influenza Type B (PCR) M. pneumoniae (PCR) Parainfluenza 1 (PCR) Parainfluenza 2 (PCR) Parainfluenza 3 (PCR) Parainfluenza 4 (PCR) RSV (PCR) Entero/Rhino (PCR) Assessment & Plan Assessment & Plan narrative: Abdullahi Aburto is a 22-year-old male who has a history of systemic juvenile idiopathic arthritis, monoclonal gannopathy of undetermined significance (MGUS), MAS (DX [id number]), mild persistent asthma.? Was on immunosuppressants for period of time but subsequently these were discontinued it he has not been on any immunosuppressant since 2012.? Presented to ED for 5 days of fevers and body aches.? He is not having any joint pain. Patient admitted to the ICU with e/ICU consult once he is brought up to the unit for fever of unknown etiology in the setting of systemic juvenile idiopathic arthritis with a history of MAS and MGUS. Patient is requiring hospitalization as he is at significant risk of developing MAS vs HLH both of which can result in significantly high risk of mortality and morbidity. 1. Fever of unknown etiology, acute, present on admission -ED patient presented with a fever 103.2, 108/56, tachycardic 149, tachypneic 28, 95% on room air. -admit temp 100.5? 100/50 tachycardic 113, mildly tachypneic 21, O2 saturation 94% on room air. -H&H 11.8/35.3, glucose 134, albumin 3.2, total protein 5.9, procalcitonin 3.7, urine:+ urobilinogen 4.0-culture pending, respiratory panel negative. -CXR negative for acute cardiopulmonary process, -EKG: ST ventricular rate [address] or T-wave changes. The following labs are used in the diagnosis or exclusion of MAS vs.HLH in IJA: WBC 6.7, PLT 168 (>181,000), AST 24 (<48), fibrinogen 679 (<360), ferritin 1480 (>684). LDH 235. Adenovirus negative -ED Rocephin and vancomycin -initiated Rocephin on admit-blood cultures and further work up pending -ordered triglycerides, CRP, ESR, EBV, CMV. Blood cultures and urine cultures are pending 2. Systemic juvenile idiopathic arthritis, with a history of MAS, acute on chronic, present on admission -Hx of monoclonal gannopathy of undetermined significance (MGUS) ED Dr. Singh consult with Dr. Hutchison rheumatology :I did have a discussion with Dr. Hutchison with rheumatology at the [facility].? I discussed the patient's case with him.? We discussed his labs.? He stated that since the patient is not on any immunosuppressant medication given his labs today he recommended treating the patient like any other non immunocompromised individuals in this situation.? That would mean this case blood cultures and antibiotics until either a source of infection is found or blood cultures were negative and the patient started to feel better.? He did not recommend starting any steroids.?? -echo ordered to rule out pericardial effusion -I personally reviewed the patient notes from [facility], [facility]' pulmonary chest Clinic, [facility] -last echo 2011 normal -admit temp 100.5? 100/50 tachycardic 113, mildly tachypneic 21, O2 saturation 94% on room air. Based on current labs patient does not meet the criteria for MAS 2016 per up-to-date: WBC 6.7, PLT 168 (>181,000), AST 24 (<48), fibrinogen 679 (<360), ferritin 1480 (>684). LDH 235. Adenovirus negative -monitor patient for lethargy neurological changes signs or symptoms, spontan eous bruising or bleeding, abnormal liver function tests, splenomegaly, hepatomegaly, cytopenia, MAS, HLH. -closely follow LFTs, ferritin, WBC for signs of a developing MAS/HLH -ordered triglycerides, CRP, ESR, EBV, CMV. Blood cultures and urine cultures are pending -if workup continues to be unremarkable and source can not be found for fever:consider lumbar puncture, brain MRI, neck/chest/abdomen CT, abdominal ultrasound, immune profile: Lymphocyte subsets IgG, IgA, and IgM 3. Asthma, persistent, chronic, PERRI bronchial stenosis with focal air trapping, chronic, present on admission -Resp consult as needed, continue medications as needed Singulair, Flovent, albuterol, Zyrtec Code status:Full Surrogate decision maker: Rita Fernando Mother COVID PCR:Negtaive COVID vaccination: Fully Vax DVT/VTE prophylaxis: Holding VTE medication due to bleeding risks, SCDs only Disposition: Patient admitted to the ICU due to close monitoring and significantly high risk of developing MAS/HLH-expected length of stay greater than 2 midnights. I have utilized all available immediate resources to obtain, update, or review the patient's current medications. I confirmed that the patient's advanced care plan is present, Code status is documented and/or surrogate decision maker is listed in the patient's medical record. I have personally reviewed patient's chart notes from PCP, specialists, diagnos tic imaging, and laboratory results. Time Spent With Patient Critical Care time: I spent a total of [] minutes of critical care time on this patient's care today; this time is exclusive of procedural time.
[2022-11-13 05:18] LABS: Hematocrit 36.5 % (41-53); Hemoglobin 12.1 g/dL (13.5-17.5); Mean Corpuscular Hemoglobin 29.6 PG (26-34); Mean Corpuscular Volume 89.5 fL (80-100); Platelet Count 182 X10^3/uL (150-400); Red Blood Cell Count 4.08 X10^6/uL (4.5-5.9); Red Cell Distribution Width 13.2 % (11.6-14.8); White Blood Cell Count 11.4 X10^3/uL (4.5-11.0)
[2022-11-13 05:19] LABS: Add Manual Diff / Slide Review YES
[2022-11-13 05:21] LABS: INR 1.3 (0.9-1.3); Prothrombin Time 15.2 SECONDS (10.1-12.7)
[2022-11-13 05:23] LABS: PTT Partial Thromboplastin Tim 29 SECONDS (26-36)
[2022-11-13 05:24] LABS: Magnesium 1.7 mg/dL (1.6-2.3)
[2022-11-13] MEDS: cefTRIAXone 1,000 MG in SODIUM CHLORIDE 0.9% 100 ML 200 MG IV (05:24)
[2022-11-13] MEDS: SODIUM CHLORIDE 0.9% 1,000 ML 100 ML IV (05:24)
[2022-11-13 05:25] LABS: Lactate (Lactic Acid) 1.2 mmol/L (0.7-2.1)
[2022-11-13 05:28] LABS: Alanine Aminotransferase 17 IU/L (<50); Albumin Globulin Ratio 1.1 (1.0-2.8); Alkaline Phosphatase 66 U/L (38-126); Aspartate Aminotransferase 22 IU/L (17-59); BUN Creatinine Ratio 11.6 (6-22); Bilirubin Total 0.3 mg/dL (0.2-1.3); Blood Urea Nitrogen 10 mg/dL (9-20); Calcium 7.6 mg/dL (8.4-10.2); Carbon Dioxide 26 mmol/L (22-32); Chloride 105 mmol/L (98-107); Estimated Glomerular Filt Rate > 60 mL/min (>60); Globulin 2.8 g/dL (1.7-4.1); Glucose 104 mg/dL (70-100); HEMOLYSIS < 15 (0-50); Potassium 3.6 mmol/L (3.4-5.1); Sodium 139 mmol/L (137-145); Total Protein 5.8 g/dL (6.3-8.2); Triglycerides 100 mg/dL (35-150)
[2022-11-13 05:31] LABS: Erythrocyte Sedimentation Rate 51 MM/HR (0-15)
[2022-11-13 05:37] LABS: Neutrophils Absolute Manual 8436 /uL (3000-5900); Total Cells Counted 100
[2022-11-13 05:38] LABS: RBC Morphology Normal Morphology
[2022-11-13 05:42] LABS: C-Reactive Protein Quant 22.5 mg/dL (<1.0)
[2022-11-13] MEDS: ACETAMINOPHEN 325 MG TABLET 650 MG PO ×4 (07:30→22:07)
--- NOTE | 2022-11-13 08:20 | PC.NURSE ---
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 pt declines wanting any breakfast so replacement tray not ordered. communicated dietary allergy to unit host as well. offered water to patient. mom at bs
[2022-11-13] MEDS: IBUPROFEN 400 MG TABLET 800 MG PO (09:30)
[2022-11-13 09:43] LABS: Strep Grp A by PCR Rapid Negative (Negative)
[2022-11-13 10:21] LABS: Monotest Negative (Negative)
--- NOTE | 2022-11-13 13:52 | DI.CT.S_ITS ---
PROCEDURE: CT ANGIO CHEST PE PROTOCOL INDICATIONS: r/o PE TECHNIQUE: After the administration of intravenous contrast, 2 mm thick sections acquired from the pulmonary apices to the posterior costophrenic angles. 3-dimensional maximum intensity projection (MIP) coronal and sagittal reformats were then acquired through the thorax. For radiation dose reduction, the following was used: automated exposure control, adjustment of mA and/or kV according to patient size. COMPARISON: None. FINDINGS: Image quality: Excellent. Pulmonary arteries: Pulmonary arteries are normal in size, and demonstrate no intraluminal filling defects to suggest central pulmonary embolism. Lungs and pleura: Lungs are clear. No pleural effusions or pneumothorax. Central and peripheral airways are patent. Mediastinum: Heart size is normal, without pericardial effusion. No mediastinal or hilar adenopathy. Thoracic aorta is normal in caliber and enhancement. Esophagus is normal in caliber, without hiatal hernia. Bones and chest wall: No suspicious bony lesions. Ribs and thoracic spine appear intact throughout. Thyroid gland is unremarkable. No axillary or supraclavicular adenopathy. Abdomen: Visualized upper abdominal solid organs appear normal in the early arterial phase of enhancement. IMPRESSION: No acute pulmonary embolus. No acute pulmonary findings. Dictated by: Ariana Weston M.D. on 11/13/2022 at 14:47 Approved by: Ariana Weston M.D. on 11/13/2022 at 14:48
[2022-11-13] MEDS: SODIUM CHLORIDE 0.9% 1,000 ML 150 ML IV ×2 (13:54→20:47)
[2022-11-13] MEDS: diazePAM 10 MG/2 ML SYRINGE 5 MG IV (15:38)
[2022-11-13] MEDS: LIDOCAINE 2% INJ SDV 5ML 5 ML (15:39)
--- NOTE | 2022-11-13 16:28 | PM.PROC.1 ---
Procedures Date/Time Date of procedure: 11/13/22 Time of procedure: 16:00 Lumbar Puncture Pre-procedure diagnosis: possible meningitis Post-procedure diagnosis: same Time Out Performed: Yes Patient Position: left lateral decubitus Skin Prep: Povidone-Iodine 1% Local anesthetic used: Lidocaine 1% Sedation: other (5 mg IV valium) Needle size: 21 ga Needle length: 6 Interspace: L3-L4 Number of attempts: 1 Opening pressure: # cm H2O (14) Fluid collected (mL): 15 Fluid description: clear Complications: No Comments: 22 M with high fever, neck stiffness admitted to the hospital needing LP to rule out meningitis. The procedure along with risks, benefits, and alternatives were discussed with the patient and family in the room. Consent was obtained from the patient. Ultrasound was used to locate proper interspinous area, the site was marked. Site was then prepped in the usual sterile fasion, using landmarks and skin marking the L3-4 interspinous space was palpated. 5 cc of lidocaine was used to anesthatize the area, needle was inserted with return of clear fluid. 15 cc of clear CSF fluid was collected in 4 vials. Opening pressure was 14 cm H2O. The needle was removed. There was no bleeding. Patient instructed to lie flat for 30 minutes after procedure. No complications were noted. CSF fluid was sent to the lab for further analysis.
[2022-11-13 16:44] LABS: HIV 1 & 2 Ab/Ag 4th Gen Combo NEGATIVE (NEGATIVE)
[2022-11-13] MEDS: OXYCODONE IR 5 MG TABLET PO ×2 (16:51→20:45)
[2022-11-13 17:00] LABS: Glucose CSF 69 mg/dL (40-70); Total Protein CSF 24 mg/dL (12-60)
[2022-11-13 18:04] LABS: Appearance CSF Clear (Clear); CSF Tube Number 2; CSF Tube Volume 3.0 mL; Color CSF Colorless (Colorless); Red Blood Cell CSF 0 RBC /uL; White Blood Cell CSF 0 MONO/uL (0-5)
[2022-11-13] MEDS: IBUPROFEN 400 MG TABLET PO ×2 (18:07→22:07)
[2022-11-13 18:37] LABS: Cryptococcus neoformans/gattii Not Detected (Not Detect); Enterovirus Not Detected (Not Detect); Escherichia coli K1 Not Detected (Not Detect); Haemophilus influenzae Not Detected (Not Detect); Herpes simplex virus 1 Not Detected (Not Detect); Herpes simplex virus 2 Not Detected (Not Detect); Human herpesvirus 6 Not Detected (Not Detect); Human parechovirus Not Detected (Not Detect); Listeria monocytogenes Not Detected (Not Detect); Neisseria meningitidis Not Detected (Not Detect); Streptococcus agalactiae Not Detected (Not Detect); Streptococcus pneumoniae Not Detected (Not Detect); Varicella Zoster Virus Not Detected (Not Detecte)
--- NOTE | 2022-11-13 22:01 | P.EN_ITS ---
Event Note Event Note (Rapid Response, Code, or fall): Update note through the course of the day. Patient is a 22 M with PMH of juvenile onset arthritis, came in with fevers. Does complain of sore throat, had some chest pain (? bone pain based on exam, EKG without evidence of acute ischemia). Labs were notable for elevated D-dimer of 4454, CTA performed negative for PE. Infectious workup has been largely unremarkable. He complained of neck stiffness and slight headache so LP was performed, which has 0 WBC and negative PCR. Normal opening pressure and normal protein. UA was not indicative of infection. HIV negative, along with rapid strep, mono. Throat culture, blood cultures are pending. Labs appear infectious rather than due to HLH or MAS, though these are in the differential given his history and markedly elevated ferritin and ESR / CRP. He does not have a marked anemia, nor hepatosplenomegaly (on CTA of his chest performed). His fever did seem to improve though he has been on tylenol and motrin through the course of the day. He remains in sinus tachycardia on telemetry, slightly improved with fluids. Will continue ant ibiotics for presumed infectious etiology at this time, if fever recurs despite antibiotics will need to reach out to hematology or rheumatology for additional recommendations and consideration of pulse dose steroids. Will need to continue to monitor labs with focus on transaminase and Hg levels. Exam: Gen: no acute distress, appears stated age HEENT: dry MM, unable to visualize tonsils, no posterior pharyngeal erythema. CV: Tachycardic, regular rhythm, no m/r/g Pulm: CTA b/l Abd: S NT ND ext: no edema or joint effusions Neuro: AxO x3, no focal deficits. I spent 30 minutes providing critical care management this patient. This excludes time spent in performing separately billed procedures.
[2022-11-13] MEDS: ALBUTEROL 2.5 MG/3 ML NEB (ADULT) INH (23:55)
[2022-11-14] VITALS (49 sets, daily range): BP systolic 96–128; BP diastolic 59–73; PULSE 111–142; RESP 14–46; TEMP 36.9–38.1; O2SAT 74–98
[2022-11-14] MEDS: IBUPROFEN 400 MG TABLET PO ×5 (02:25→22:06)
[2022-11-14] MEDS: ACETAMINOPHEN 325 MG TABLET 650 MG PO ×4 (02:26→22:07)
[2022-11-14] MEDS: SODIUM CHLORIDE 0.9% 1,000 ML 150 ML IV ×3 (03:38→18:18)
[2022-11-14] MEDS: cefTRIAXone 2,000 MG in SODIUM CHLORIDE 0.9% 100 ML 200 MG IV (03:40)
[2022-11-14] MEDS: ALBUTEROL 2.5 MG/3 ML NEB (ADULT) INH ×3 (03:55→19:07)
[2022-11-14] MEDS: OXYCODONE IR 5 MG TABLET PO ×4 (04:08→22:06)
[2022-11-14 05:22] LABS: Hematocrit 33.9 % (41-53); Hemoglobin 11.3 g/dL (13.5-17.5); Mean Corpuscular HGB Conc 33.3 % (30-36); Mean Corpuscular Hemoglobin 29.7 PG (26-34); Mean Corpuscular Volume 89.2 fL (80-100); Platelet Count 190 X10^3/uL (150-400); Red Cell Distribution Width 13.3 % (11.6-14.8); White Blood Cell Count 10.9 X10^3/uL (4.5-11.0)
[2022-11-14 05:27] LABS: Add Manual Diff / Slide Review YES
[2022-11-14 05:36] LABS: Alanine Aminotransferase 17 IU/L (<50); Albumin 2.7 g/dL (3.5-5.0); Alkaline Phosphatase 72 U/L (38-126); Aspartate Aminotransferase 30 IU/L (17-59); BUN Creatinine Ratio 7.8 (6-22); Bilirubin Total 0.5 mg/dL (0.2-1.3); Blood Urea Nitrogen 7 mg/dL (9-20); Calcium 7.4 mg/dL (8.4-10.2); Carbon Dioxide 23 mmol/L (22-32); Chloride 104 mmol/L (98-107); Estimated Glomerular Filt Rate > 60 mL/min (>60); Globulin 2.7 g/dL (1.7-4.1); Glucose 101 mg/dL (70-100); HEMOLYSIS < 15 (0-50); Potassium 3.9 mmol/L (3.4-5.1); Sodium 138 mmol/L (137-145); Total Protein 5.4 g/dL (6.3-8.2)
[2022-11-14 05:49] LABS: Procalcitonin 9.66 ng/mL (<0.5)
[2022-11-14 06:13] LABS: Neutrophils Absolute Manual 8393 /uL (3000-5900); RBC Morphology Normal Morphology; Total Cells Counted 100
--- NOTE | 2022-11-14 06:43 | PC.NURSE ---
Night Note-Patient continues to be ST rate 115-130, RR 20s-30. Afebrile. Tylenol, ibuprofen, and oxycodone given for pain. Neb tx also started for mild dyspnea. Mom in room overnight.
[2022-11-14] MEDS: MONTELUKAST 10 MG TABLET PO (08:28)
--- NOTE | 2022-11-14 09:06 | DI.CT.S_ITS ---
PROCEDURE: CT ABDOMEN PELVIS W CON INDICATIONS: fever, sepsis TECHNIQUE: After the administration of intravenous contrast, axial sections acquired from the lung bases to the pubic symphysis. Coronal and sagittal reformats were performed. For radiation dose reduction, the following was used: automated exposure control, adjustment of mA and/or kV according to patient size. COMPARISON: None. FINDINGS: Image quality: Good Lower chest: Better seen on recent chest CT. There is a small pericardial effusion. Suspected distal esophageal reflux. Small pleural effusions and bibasilar infectious or inflammatory opacities, along with atelectasis. Solid organs: Mild periportal edema, nonspecific. Liver is otherwise unremarkable. Subcentimeter lesions are too small to characterize. Gallbladder is mildly distended, with possible sludge versus tiny gallstones. No pathologic dilation of the biliary tree or pancreatic duct. There is mild nonspecific peripancreatic fat stranding. No splenomegaly. No adrenal nodules. Nonobstructing renal calculi, and small renal cysts/subcentimeter lesions that are too small to characterize. No hydronephrosis. Vessels and lymph nodes: The main portal vein is patent. No abdominal aortic aneurysm. No pathologic adenopathy by size criteria. Prominent mesenteric lymph nodes, nonspecific. Bowel and peritoneum: No evidence of small bowel obstruction. Above average fecal loading. There is a small amount pelvic free fluid, nonspecific. Body wall: Unremarkable Pelvis: Bladder is unremarkable. Prostate is not well evaluated, grossly unremarkable. Bones: No acute or suspicious osseous finding. IMPRESSION: Multiple nonspecific abdominal findings, including periportal edema, peripancreatic fat stranding, prominent mesenteric lymph nodes, and small amount pelvic free fluid. These findings may be related to reported sepsis physiology and volume resuscitation. Please also consider correlation with lipase and follow-up imaging. Partially visualized chest findings with small effusions, basal opacities, pericardial effusion, and fluid in the distal esophagus. Dictated by: Sami Aguero M.D. on 11/14/2022 at 10:10 Approved by: Sami Aguero M.D. on 11/14/2022 at 10:16
--- NOTE | 2022-11-14 09:38 | PM.CN.EICU ---
History of Present Illness Consult details IF CAMERA ACTIVATED, patient seen via real-time interactive audiovisual communication: Camera activated Date Patient Seen: 11/14/22 Chief complaint: Viral Symptoms Reason for consult: Sepsis Requesting provider: Amanda Lizama Consent obtained for tele-records management assistant care: Yes Patient Location: ICU Provider location (State): [place] Other participants/roles: Bedside RN and MARINA Narrative: Valeria is a 22 year old male with history of juvenile onset arthritis who presents with sore throat, chest pain, myalgia, and bone pain. In ER, labs notable for D dimer 4454 which he underwent CTA PE study and negative for filling defect. He was also noted to have ?neck stiffness which underwent LP. CSF analysis -> WBC 0 and PCR negative. PCT came back elevated at 9.66. He was started on ceftriaxone empirically. [facility] consulted and recommended sepsis workup and to hold off on steroids per discussion with primary bedside team. On camera assessment patient is awake and following commands. Not on supplemental O2. Vitals notable for HR ~120s. 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 Family History (Updated 11/13/22 @ 05:12 by STEFFEN Bolanos-) Mother Asthma Sister Asthma Social History household members: friend(s) Smoking Status: Never smoker alcohol intake: current Current Medications Current Medications Medications: Home Medications cetirizine 10 mg tablet (Zyrtec) 10 mg PO DAILY PRN Allergic Symptoms 11/13/22 [History Confirmed 11/13/22] epinephrine 0.3 mg/0.3 mL injection, auto-injector (Auvi-Q) PRN PRN Anaphylaxis 11/13/22 [History] fluticasone propionate 110 mcg/actuation HFA aerosol inhaler 2 puff inhalation BID 11/13/22 [History Confirmed 11/13/22] montelukast 10 mg tablet 10 mg PO DAILY 11/13/22 [History Confirmed 11/13/22] ondansetron 4 mg disintegrating tablet 4 mg PO PRN PRN Nausea 11/13/22 [History Confirmed 11/13/22] Visit Medications (administered) Generic Name Dose Route Start Last Admin Trade Name Giselle PRN Reason Stop Dose Admin Acetaminophen 650 mg 11/13/22 04:35 11/14/22 02:26 Acetaminophen 325 Mg Tablet PO 650 mg Q4H PRN Administration Fever/Mild Pain (1-3) Albuterol 2.5 mg 11/13/22 09:15 11/14/22 09:02 Albuterol 2.5 Mg/3 Ml Neb (Adult) INH 2.5 mg [id number] PRN Administration Shortness Of Breath Sodium Chloride 1,000 mls @ 150 mls/hr 11/13/22 04:30 11/14/22 03:38 Normal Saline 0.9% IV 150 mls/hr CONT JOSE ANTONIO Administration Ceftriaxone Sodium 2,000 mg/ 100 mls @ 200 mls/hr 11/14/22 04:00 11/14/22 04:32 Sodium Chloride IV Infused Q24H JOSE ANTONIO Infusion Ibuprofen 400 mg 11/13/22 17:22 11/14/22 08:28 Ibuprofen 400 Mg Tablet PO 400 mg Q4H PRN Administration Fever/Mild Pain (1-3) Montelukast Sodium 10 mg 11/14/22 09:00 11/14/22 08:28 Montelukast 10 Mg Tablet PO 10 mg DAILY JOSE ANTONIO Administration Oxycodone HCl 5 mg 11/13/22 16:45 11/14/22 08:28 Oxycodone Ir 5 Mg Tablet PO 5 mg Q4HR PRN Administration Pain, Severe (7-10) Exam Vital Signs (past 8 hours): - 11/14/22 04:08 11/14/22 07:00 11/14/22 08:28 Temperature 98.4 F 99.9 F H Pulse Rate 129 H Respiratory Rate 22 Blood Pressure 128/73 Pulse Oximetry 92 Oxygen Delivery Method Room Air 11/14/22 09:02 11/14/22 09:00 11/14/22 09:00 Temperature 99.9 F H 100.5 F H Pulse Rate 132 H 123 H Respiratory Rate 20 23 Blood Pressure 108/59 L Pulse Oximetry 96 96 Oxygen Delivery Method Room Air Oxygen Delivery Method Room Air Oxygen Flow Rate 0 Narrative Exam Narrative: NAD and speaking in full sentence Objective Labs 11/14/22 03:44 11/14/22 03:44 Labs: Laboratory Results - last 24 hr 11/13/22 11/13/22 11/13/22 05:04 07:35 16:24 WBC RBC Hgb Hct MCV MCH MCHC RDW Plt Count Neut % (Auto) Lymph % (Auto) Carbon % (Auto) Eos % (Auto) Baso % (Auto) Lymph # (Auto) Carbon # (Auto) Baso # (Auto) Total Counted Seg Neutrophils % Band Neutrophils % Lymphocytes % (Manual) Monocytes % (Manual) Eosinophils % (Manual) Basophils % (Manual) Metamyelocytes % Neutrophils # (Manual) RBC Morphology Sodium Potassium Chloride Carbon Dioxide BUN Creatinine Estimated GFR BUN/Creatinine Ratio Glucose Calcium Total Bilirubin AST ALT Alkaline Phosphatase Total Protein Albumin Globulin Albumin/Globulin Ratio Procalcitonin CSF Tube Number 2 CSF Volume 3.0 ml CSF Appearance Clear CSF Color Colorless CSF WBC 0 CSF RBC 0 CSF Mononuclear WBCs TNP CSF Polynuclear WBCs TNP CSF Glucose 69 CSF Total Protein 24 CSF C.neoform/gat PCR CSF CMV DNA (PCR) CSF Enterovirus (PCR) CSF E. coli (PCR) CSF H. influenzae (PCR) CSF HSV I (PCR) CSF HSV II (PCR) CSF HHV 6 (PCR) CSF L.monocytogenes PCR CSF N. meningitidis PCR CSF Parechovirus (PCR) CSF S. agalactiae (PCR) CSF S. pneumoniae (PCR) CSF VZV (PCR) Monoscreen Negative HIV 1&2 Ab/P24 Ag 4thGn Negative Group A Strep (PCR) Negative 11/13/22 11/14/22 11/14/22 16:24 03:44 03:44 WBC 10.9 RBC 3.80 L Hgb 11.3 L Hct 33.9 L MCV 89.2 MCH 29.7 MCHC 33.3 RDW 13.3 Plt Count 190 Neut % (Auto) Not Reportable Lymph % (Auto) Not Reportable Carbon % (Auto) Not Reportable Eos % (Auto) Not Reportable Baso % (Auto) Not Reportable Lymph # (Auto) Not Reportable Carbon # (Auto) Not Reportable Baso # (Auto) Not Reportable Total Counted 100 Seg Neutrophils % 44.0 Band Neutrophils % 33.0 H Lymphocytes % (Manual) 13.0 L Monocytes % (Manual) 5.0 Eosinophils % (Manual) 1.0 L Basophils % (Manual) 1.0 Metamyelocytes % 3.0 H Neutrophils # (Manual) 8393 H RBC Morphology Normal morphology Sodium 138 Potassium 3.9 Chloride 104 Carbon Dioxide 23 BUN 7 L Creatinine 0.90 Estimated GFR > 60 BUN/Creatinine Ratio 7.8 Glucose 101 H Calcium 7.4 L Total Bilirubin 0.5 AST 30 ALT 17 Alkaline Phosphatase 72 Total Protein 5.4 L Albumin 2.7 L Globulin 2.7 Albumin/Globulin Ratio 1.0 Procalcitonin CSF Tube Number CSF Volume CSF Appearance CSF Color CSF WBC CSF RBC CSF Mononuclear WBCs CSF Polynuclear WBCs CSF Glucose CSF Total Protein CSF C.neoform/gat PCR Not detected CSF CMV DNA (PCR) Not detected CSF Enterovirus (PCR) Not detected CSF E. coli (PCR) Not detected CSF H. influenzae (PCR) Not detected CSF HSV I (PCR) Not detected CSF HSV II (PCR) Not detected CSF HHV 6 (PCR) Not detected CSF L.monocytogenes PCR Not detected CSF N. meningitidis PCR Not detected CSF Parechovirus (PCR) Not detected CSF S. agalactiae (PCR) Not detected CSF S. pneumoniae (PCR) Not detected CSF VZV (PCR) Not detected Monoscreen HIV 1&2 Ab/P24 Ag 4thGn Group A Strep (PCR) 11/14/22 03:44 WBC RBC Hgb Hct MCV MCH MCHC RDW Plt Count Neut % (Auto) Lymph % (Auto) Carbon % (Auto) Eos % (Auto) Baso % (Auto) Lymph # (Auto) Carbon # (Auto) Baso # (Auto) Total Counted Seg Neutrophils % Band Neutrophils % Lymphocytes % (Manual) Monocytes % (Manual) Eosinophils % (Manual) Basophils % (Manual) Metamyelocytes % Neutrophils # (Manual) RBC Morphology Sodium Potassium Chloride Carbon Dioxide BUN Creatinine Estimated GFR BUN/Creatinine Ratio Glucose Calcium Total Bilirubin AST ALT Alkaline Phosphatase Total Protein Albumin Globulin Albumin/Globulin Ratio Procalcitonin 9.66 H CSF Tube Number CSF Volume CSF Appearance CSF Color CSF WBC CSF RBC CSF Mononuclear WBCs CSF Polynuclear WBCs CSF Glucose CSF Total Protein CSF C.neoform/gat PCR CSF CMV DNA (PCR) CSF Enterovirus (PCR) CSF E. coli (PCR) CSF H. influenzae (PCR) CSF HSV I (PCR) CSF HSV II (PCR) CSF HHV 6 (PCR) CSF L.monocytogenes PCR CSF N. meningitidis PCR CSF Parechovirus (PCR) CSF S. agalactiae (PCR) CSF S. pneumoniae (PCR) CSF VZV (PCR) Monoscreen HIV 1&2 Ab/P24 Ag 4thGn Group A Strep (PCR) Assessment & Plan Assessment and plan (1) Sepsis: Status: Acute Plan: -- Concern for bacterial infection givne elevated procalcitonin -- Cx negative to date -- Follow up cx data -- Con ceftriaxone -- Recommend repeat PCT tomorrow; if level continues to uptrend then will consider broaden abx (2) Fever of unknown origin: Status: Acute Plan: -- Possible related to infectious vs inflammatory -- On abx -- Primary team in discussion with rheumatology in regard to when to initiate steroids -- TTE negative -- Follow up data (3) Tachycardia: Status: Acute Plan: -- Secodnary to stress response from sepsis and increased catecholamine -- Cont IVF -- Sepsis rx (4) Juvenile arthritis: Status: Acute Plan: -- Defer management to [facility] team -- Pain control per primary bedside team Time Spent With Patient Time with patient: less than 30 minutes Critical Care time: I spent a total of [] minutes of critical care time on this patient's care today; this time is exclusive of procedural time.
[2022-11-14] MEDS: ENOXAPARIN 40 MG/0.4 ML SYRINGE SUBCUT (11:02)
[2022-11-14 11:07] LABS: EBV Ab VCA, IgM <36.0 U/mL (0.0-35.9)
[2022-11-14] MEDS: BUDESONIDE 0.5 MG/2 ML NEB INH ×2 (11:40→19:07)
[2022-11-14 12:46] LABS: Thyroid Stimulating Hormone 0.615 uIU/mL (0.47-4.68)
[2022-11-14 14:43] LABS: Ferritin 4210 ng/mL (18-464)
--- NOTE | 2022-11-14 16:10 | CM.DANOTE ---
DCP: Case recieved and EMR reviewed. Pt is a 22 yo male with who arrived via ambulance with c/o worsening fevers and joint pain. 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 PCP: Pt reports that he does not currently have a PCP. This CM suggested that pt attempt to find a PCP in the [facility] area by looking up his insurance online and finding a preferred provider near him. Insurance: [facility] This CM met with pt in his room. Introduced self and role. Pt was sitting up in his chair and had his sister who is a twin and Mother and Father in the room with him. Pt states that he lives with friends in [facility]. He states that he drives when he feels well and that he does not use DME. Pt states that he called his parent's a few days ago who came and got him because he was not feeling well. Pt has a loving family who is caring for him in their home in [place] until he is stable to go home. Pt and family report that pt does not have a rhuematologist, but that he has an artist consultant Dr. Ru Cantor in [place]. Pt and family state that he does not currently have a PCP and that he has not had any specialists other than Dr. Cantor since pt stabilized after he was 11yo. Pt confirms that his Pediatric Dr[facility] was Dr. Nuno. He and his family confirm that he was followed when he was younger by Rheumatology at [facility]. Plan: Home with family when Medically Stable. Bettie Gomez RN Case Manager Discharge Planning/Care Management CM Discharge Assessment Start: 11/14/22 16:08 Freq: Status: Active Protocol: Document 11/14/22 16:08 KIAN (Rec: 11/14/22 16:08 KIAN [id number]) Discharge Planning Assessment Assigned At Risk Specialist Bettie Gomez RN Case Manager Advance Directives? No History Provided By Patient,Parents Has Patient been admitted in last 30 No days? Prior Living Arrangements Apartment/Condo Household Members friend(s) Type of transporation used prior to Drives own vehicle admit Independent with ADL's Yes Is patient alert and oriented? Yes Caregiver for Another No Discharge Plan Home Referrals Initiated None needed Whiteboard Updated in Patient Room with Yes name and ext. # of At Risk Specialist Review Status In Process Next Review Type Continued Stay Review Document 11/14/22 16:10 KIAN (Rec: 11/14/22 16:10 KIAN [id number]) Discharge Planning Assessment Assigned At Risk Specialist Bettie Gomez RN Case Manager Advance Directives? No History Provided By Patient,Parents Has Patient been admitted in last 30 No days? Prior Living Arrangements Apartment/Condo Household Members friend(s) Type of transporation used prior to Drives own vehicle admit Independent with ADL's Yes Is patient alert and oriented? Yes Caregiver for Another No Discharge Plan Home Referrals Initiated None needed Whiteboard Updated in Patient Room with Yes name and ext. # of At Risk Specialist Review Status In Process Next Review Type Continued Stay Review
[2022-11-14 17:08] LABS: CMV DNA, Quant Real Time PCR Negative (Negative)
--- NOTE | 2022-11-14 18:20 | P.PN_ITS ---
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 Evaluation thus far has included blood and urine cultures which are negative to date, mono test which was negative, strep testing which was negative, chest x-ray which was negative, echocardiogram which revealed no concern for vegetation and an EF of 50 +/-5%, CT angiogram which was negative, LP which is negative to date, and a negative respiratory viral panel. Additionally, he has not had any localizing symptoms. Today, patient complains of pleuritic chest pain. He notes that yesterday his pleuritic pain was worse on the left and today it is more on the right. He denies any arthralgias. He reports improvement of his myalgias. He reports he did have 2 episodes of vomiting several days ago but none since that time. No constipation. No diarrhea. No headache or neck pain. No back pain. He denies any rash. His mother and father at bedside. They expressed concern that his current presentation is consistent with how he initially presented with his rheumatologic illness. Dr. Hutchison, [facility] rheumatology was consulted by telephone at the time of admission and advised that patient did not have concerning symptoms for recurrent MEL/MAS, and recommended not to treat with empiric steroids. Exam Vital Signs (past 8 hours): - 11/14/22 11:41 11/14/22 10:30 11/14/22 11:00 Temperature Pulse Rate 129 H 132 H 128 H Respiratory Rate 20 35 H 38 H Blood Pressure Pulse Oximetry 98 92 93 Oxygen Delivery Method Room Air Oxygen Flow Rate 11/14/22 11:30 11/14/22 12:00 11/14/22 12:30 Temperature Pulse Rate 129 H 133 H 141 H Respiratory Rate 34 H 29 H 38 H Blood Pressure Pulse Oximetry 94 95 74 L Oxygen Delivery Method Oxygen Flow Rate 11/14/22 13:00 11/14/22 13:30 11/14/22 14:00 Temperature Pulse Rate 140 H 138 H 130 H Respiratory Rate 34 H 37 H 46 H Blood Pressure Pulse Oximetry 92 92 92 Oxygen Delivery Method Oxygen Flow Rate 11/14/22 14:40 11/14/22 15:00 02/24/23 15:30 Temperature Pulse Rate 129 H 120 H 116 H Respiratory Rate 26 H 24 42 H Blood Pressure Pulse Oximetry 91 87 L 88 L Oxygen Delivery Method Oxygen Flow Rate 11/14/22 16:00 11/14/22 16:30 11/14/22 17:15 Temperature 99.1 F Pulse Rate 116 H 122 H Respiratory Rate 22 32 H Blood Pressure Pulse Oximetry 90 L 93 Oxygen Delivery Method Oxygen Flow Rate 11/14/22 17:00 11/14/22 16:45 Temperature 99.1 F 99.9 F H Pulse Rate 123 H 118 H Respiratory Rate 22 28 H Blood Pressure 96/72 96/72 Pulse Oximetry 98 93 Oxygen Delivery Method Oxygen Flow Rate 0 Oxygen Delivery Method Room Air Oxygen Flow Rate 0 Narrative Exam Narrative: GEN: Ill-appearing adult male, Alert and oriented x 3, pale HEENT:NC, Face symmetric, nontender to palpation of the sinuses, oropharynx reveals mild erythema no exudate, neck is supple without adenopathy CHEST: Respiratory excursions symmetric, mildly tachypneic/shallow respirations, CTAB CV: Tachycardic with regular rhythm, no M/R/G ABD: Soft, NT/ND, BT present in all 4 quadrants, no organomegaly or masses EXTR: warm, well perfused, no C/C/E SKIN: warm and dry, no rash NEURO: Alert and oriented x 3, nonfocal Objective Labs 11/14/22 03:44 11/14/22 03:44 Labs: Laboratory Results - last 24 hr 11/13/22 11/13/22 11/13/22 05:04 05:04 16:24 WBC RBC Hgb Hct MCV MCH MCHC RDW Plt Count Neut % (Auto) Lymph % (Auto) Bulloch % (Auto) Eos % (Auto) Baso % (Auto) Lymph # (Auto) Bulloch # (Auto) Baso # (Auto) Total Counted Seg Neutrophils % Band Neutrophils % Lymphocytes % (Manual) Monocytes % (Manual) Eosinophils % (Manual) Basophils % (Manual) Metamyelocytes % Neutrophils # (Manual) RBC Morphology Sodium Potassium Chloride Carbon Dioxide BUN Creatinine Estimated GFR BUN/Creatinine Ratio Glucose Calcium Ferritin Total Bilirubin AST ALT Alkaline Phosphatase Total Protein Albumin Globulin Albumin/Globulin Ratio Procalcitonin TSH CSF C.neoform/gat PCR Not detected CSF CMV DNA (PCR) Not detected CSF Enterovirus (PCR) Not detected CSF E. coli (PCR) Not detected CSF H. influenzae (PCR) Not detected CSF HSV I (PCR) Not detected CSF HSV II (PCR) Not detected CSF HHV 6 (PCR) Not detected CSF L.monocytogenes PCR Not detected CSF N. meningitidis PCR Not detected CSF Parechovirus (PCR) Not detected CSF S. agalactiae (PCR) Not detected CSF S. pneumoniae (PCR) Not detected CSF VZV (PCR) Not detected CMV Qnt PCR IU/mL Negative CMV Qnt PCR log IU/mL TNP EBC (Quant-PCR) Qual EBV Capsid Ag IgM Ab <36.0 11/14/22 11/14/22 11/14/22 03:44 03:44 03:44 WBC 10.9 RBC 3.80 L Hgb 11.3 L Hct 33.9 L MCV 89.2 MCH 29.7 MCHC 33.3 RDW 13.3 Plt Count 190 Neut % (Auto) Not Reportable Lymph % (Auto) Not Reportable Bulloch % (Auto) Not Reportable Eos % (Auto) Not Reportable Baso % (Auto) Not Reportable Lymph # (Auto) Not Reportable Bulloch # (Auto) Not Reportable Baso # (Auto) Not Reportable Total Counted 100 Seg Neutrophils % 44.0 Band Neutrophils % 33.0 H Lymphocytes % (Manual) 13.0 L Monocytes % (Manual) 5.0 Eosinophils % (Manual) 1.0 L Basophils % (Manual) 1.0 Metamyelocytes % 3.0 H Neutrophils # (Manual) 8393 H RBC Morphology Normal morphology Sodium 138 Potassium 3.9 Chloride 104 Carbon Dioxide 23 BUN 7 L Creatinine 0.90 Estimated GFR > 60 BUN/Creatinine Ratio 7.8 Glucose 101 H Calcium 7.4 L Ferritin Total Bilirubin 0.5 AST 30 ALT 17 Alkaline Phosphatase 72 Total Protein 5.4 L Albumin 2.7 L Globulin 2.7 Albumin/Globulin Ratio 1.0 Procalcitonin 9.66 H TSH CSF C.neoform/gat PCR CSF CMV DNA (PCR) CSF Enterovirus (PCR) CSF E. coli (PCR) CSF H. influenzae (PCR) CSF HSV I (PCR) CSF HSV II (PCR) CSF HHV 6 (PCR) CSF L.monocytogenes PCR CSF N. meningitidis PCR CSF Parechovirus (PCR) CSF S. agalactiae (PCR) CSF S. pneumoniae (PCR) CSF VZV (PCR) CMV Qnt PCR IU/mL CMV Qnt PCR log IU/mL EBC (Quant-PCR) Qual EBV Capsid Ag IgM Ab 11/14/22 11/14/22 11/14/22 03:44 03:44 13:32 WBC RBC Hgb Hct MCV MCH MCHC RDW Plt Count Neut % (Auto) Lymph % (Auto) Bulloch % (Auto) Eos % (Auto) Baso % (Auto) Lymph # (Auto) Bulloch # (Auto) Baso # (Auto) Total Counted Seg Neutrophils % Band Neutrophils % Lymphocytes % (Manual) Monocytes % (Manual) Eosinophils % (Manual) Basophils % (Manual) Metamyelocytes % Neutrophils # (Manual) RBC Morphology Sodium Potassium Chloride Carbon Dioxide BUN Creatinine Estimated GFR BUN/Creatinine Ratio Glucose Calcium Ferritin 4210 H Total Bilirubin AST ALT Alkaline Phosphatase Total Protein Albumin Globulin Albumin/Globulin Ratio Procalcitonin TSH 0.615 CSF C.neoform/gat PCR CSF CMV DNA (PCR) CSF Enterovirus (PCR) CSF E. coli (PCR) CSF H. influenzae (PCR) CSF HSV I (PCR) CSF HSV II (PCR) CSF HHV 6 (PCR) CSF L.monocytogenes PCR CSF N. meningitidis PCR CSF Parechovirus (PCR) CSF S. agalactiae (PCR) CSF S. 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 Sepsis Patient presents with symptoms and signs of sepsis, inclusive of tachycardia, fever, bandemia (up from 16% to 33% today), and generalized systemic symptoms. Procalcitonin significantly elevated at 9.66, raising concern for bacterial infection. Thus far cultures are negative. No localizing findings on any imaging or testing that has been done to date. No back pain to raise concern for diskitis or osteomyelitis. No GI symptoms. He has resolution of his sore throat. No arthralgias and improved myalgias. Overall, his fever curve is improving. On admission his temp was a 103.2?. T-max in last 24 hours is 100.6. Continue Rocephin for now. Will obtain a CT of the abdomen and pelvis to rule out occult pathology. However I have low suspicion as he is not having any abdominal discomfort, nausea, or vomiting. There is no indication of broaden coverage for now. Tele ICU consultation obtained and Dr. Combs agrees. 2. Sinus tachycardia Patient has had resting heart rates in the 120s to 130s. Suspect this is sherif shireen physiologic. Echocardiogram did not reveal any wall motion abnormalities or evidence of cardiomyopathy. 3. Asthma, persistent Patient remains on Singulair, albuterol. Flovent was held and he is receiving budesonide nebulizers. Although he is tachypneic and mildly grunting (suspect auto-PEEP process), he does not have evidence of asthma exacerbation. Specifically he has no evidence of wheezing. CT pulmonary angiogram was done yesterday and revealed no infiltrates, effusions, or pulmonary emboli. For now will continue supportive care. He is not requiring oxygen. Empirically covered with Rocephin as noted. 4.History of juvenile idiopathic arthritis/MGUS/MAS Spoke with Rheumatology again at the [facility], Dr. Hutchison. At this time, he reports the patient's mild leukocytosis, and normal LFTs are reassuring. He notes recurrent MAS would present as rapidly decreasing cell lines, rapidly increasing LFTs, and rising ferritin levels. Based on reviewing patient's present labs and clinical picture, he again reiterated he did not feel the patient had a need for steroid treatment. I have reviewed this at length with the patient, and his mother and father who are at bedside. They raised continued concern that during patient's initial presentation, there was a delay in obtaining his diagnosis and they are concerned this is happening again. Advised for now, there is no indication for steroids. In fact in the setting of possible infectious etiology for his symptoms, steroids could prove to be somewhat harmful. Plan to continue close monitoring. Will obtain a follow-up ferritin level per recommendations from Dr. Hutchison. Additionally, will send EBV IgM and IgG. CMV serologies are presently pending. He advised HHV6 and 8 could be sent although it is unlikely a [facility] lab has that testing available. 5. Normocytic anemia Mild. Hemoglobin was 11.8 on admission. It is 11.3 today. Likely down slightly secondary to hydration and lab draws. Will monitor. No concern for active bleeding. 6. Hypoalbuminemia On presentation, albumin was mildly low at 3.2. It is down to 2.7 today. Suspect this is acute and secondary to his illness. He is at risk for 3rd spacing fluids. Code status Full Prophylaxis On Lovenox Disposition ICU Time Spent With Patient Critical Care time: I spent a total of [] minutes of critical care time on this patient's care today; this time is exclusive of procedural time.
--- NOTE | 2022-11-14 20:14 | PM.EVENT ---
Event Note Date Patient Seen: 11/14/22 Time Patient Seen: 20:15 Event Note (Rapid Response, Code, or fall): Multidisciplinary round completed. Patient remains tachycardia to the 120s on IVF. Cx negative to date. Will continue ceftriaxone and follow up cx data. D/w RN.
[2022-11-15] VITALS (45 sets, daily range): BP systolic 97–121; BP diastolic 56–82; PULSE 109–156; RESP 16–50; TEMP 36.8–37.1; O2SAT 84–99
[2022-11-15] MEDS: SODIUM CHLORIDE 0.9% 1,000 ML 150 ML IV ×2 (00:30→07:44)
[2022-11-15] MEDS: ALBUTEROL 2.5 MG/3 ML NEB (ADULT) INH ×2 (03:46→22:19)
[2022-11-15] MEDS: cefTRIAXone 2,000 MG in SODIUM CHLORIDE 0.9% 100 ML 200 MG IV (03:51)
[2022-11-15] MEDS: ACETAMINOPHEN 325 MG TABLET 650 MG PO ×2 (03:52→10:22)
[2022-11-15] MEDS: OXYCODONE IR 5 MG TABLET PO ×3 (03:52→15:14)
[2022-11-15] MEDS: IBUPROFEN 400 MG TABLET PO ×3 (03:52→15:15)
[2022-11-15 04:47] LABS: Hematocrit 31.5 % (41-53); Hemoglobin 10.5 g/dL (13.5-17.5); Mean Corpuscular HGB Conc 33.4 % (30-36); Mean Corpuscular Hemoglobin 29.7 PG (26-34); Mean Corpuscular Volume 88.8 fL (80-100); Platelet Count 193 X10^3/uL (150-400); Red Blood Cell Count 3.55 X10^6/uL (4.5-5.9); Red Cell Distribution Width 13.7 % (11.6-14.8); White Blood Cell Count 16.1 X10^3/uL (4.5-11.0)
[2022-11-15 04:48] LABS: Add Manual Diff / Slide Review YES
[2022-11-15 05:07] LABS: Alanine Aminotransferase 23 IU/L (<50); Albumin 2.7 g/dL (3.5-5.0); Alkaline Phosphatase 87 U/L (38-126); Aspartate Aminotransferase 43 IU/L (17-59); BUN Creatinine Ratio 9.2 (6-22); Bilirubin Total 0.4 mg/dL (0.2-1.3); Blood Urea Nitrogen 8 mg/dL (9-20); Calcium 7.6 mg/dL (8.4-10.2); Carbon Dioxide 26 mmol/L (22-32); Chloride 103 mmol/L (98-107); Estimated Glomerular Filt Rate > 60 mL/min (>60); Globulin 2.7 g/dL (1.7-4.1); Glucose 95 mg/dL (70-100); HEMOLYSIS < 15 (0-50); Potassium 3.3 mmol/L (3.4-5.1); Sodium 137 mmol/L (137-145); Total Protein 5.4 g/dL (6.3-8.2)
[2022-11-15 05:24] LABS: Procalcitonin 7.02 ng/mL (<0.5)
[2022-11-15 05:26] LABS: MRSA (Nasal) PCR Not Detected (Not Detect)
[2022-11-15 05:45] LABS: Total Cells Counted 100
[2022-11-15 05:46] LABS: Neutrophils Absolute Manual 14329 /uL (3000-5900); RBC Morphology Normal Morphology
--- NOTE | 2022-11-15 07:33 | PM.PN.EICU ---
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: Yes Patient Location: ICU Provider location (State): [place] Other participants/roles: MD Current Medications Current Medications Medications: Home Medications cetirizine 10 mg tablet (Zyrtec) 10 mg PO DAILY PRN Allergic Symptoms 11/13/22 [History Confirmed 11/13/22] epinephrine 0.3 mg/0.3 mL injection, auto-injector (Auvi-Q) PRN PRN Anaphylaxis 11/13/22 [History] fluticasone propionate 110 mcg/actuation HFA aerosol inhaler 2 puff inhalation BID 11/13/22 [History Confirmed 11/13/22] montelukast 10 mg tablet 10 mg PO DAILY 11/13/22 [History Confirmed 11/13/22] ondansetron 4 mg disintegrating tablet 4 mg PO PRN PRN Nausea 11/13/22 [History Confirmed 11/13/22] Visit Medications (administered) Generic Name Dose Route Start Last Admin Trade Name Freq PRN Reason Stop Dose Admin Acetaminophen 650 mg 11/13/22 04:35 11/15/22 03:52 Acetaminophen 325 Mg Tablet PO 650 mg Q4H PRN Administration Fever/Mild Pain (1-3) Albuterol 2.5 mg 11/13/22 09:15 11/15/22 03:46 Albuterol 2.5 Mg/3 Ml Neb (Adult) INH 2.5 mg [id number] PRN Administration Shortness Of Breath Budesonide 0.5 mg 11/14/22 10:45 11/14/22 19:07 Budesonide 0.5 Mg/2 Ml Neb INH 0.5 mg RTBID JOSE ANTONIO Administration Enoxaparin Sodium 40 mg 11/14/22 10:45 11/14/22 11:02 Enoxaparin 40 Mg/0.4 Ml Syringe SUBCUT 40 mg DAILY JOSE ANTONIO Administration Sodium Chloride 1,000 mls @ 150 mls/hr 11/13/22 04:30 11/15/22 00:30 Normal Saline 0.9% IV 150 mls/hr CONT JOSE ANTONIO Administration Ceftriaxone Sodium 2,000 mg/ 100 mls @ 200 mls/hr 11/14/22 04:00 11/15/22 04:53 Sodium Chloride IV Infused Q24H JOSE ANTONIO Infusion Ibuprofen 400 mg 11/13/22 17:22 11/15/22 03:52 Ibuprofen 400 Mg Tablet PO 400 mg Q4H PRN Administration Fever/Mild Pain (1-3) Montelukast Sodium 10 mg 11/14/22 09:00 11/14/22 08:28 Montelukast 10 Mg Tablet PO 10 mg DAILY JOSE ANTONIO Administration Oxycodone HCl 5 mg 11/13/22 16:45 11/15/22 03:52 Oxycodone Ir 5 Mg Tablet PO 5 mg Q4HR PRN Administration Pain, Severe (7-10) Objective Labs 11/15/22 04:27 11/15/22 04:27 Labs: Laboratory Results - last 24 hr 11/13/22 11/13/22 11/14/22 05:04 05:04 03:44 WBC RBC Hgb Hct MCV MCH MCHC RDW Plt Count Neut % (Auto) Lymph % (Auto) Garza % (Auto) Eos % (Auto) Baso % (Auto) Lymph # (Auto) Garza # (Auto) Baso # (Auto) Total Counted Seg Neutrophils % Band Neutrophils % Lymphocytes % (Manual) Monocytes % (Manual) Neutrophils # (Manual) RBC Morphology Sodium Potassium Chloride Carbon Dioxide BUN Creatinine Estimated GFR BUN/Creatinine Ratio Glucose Calcium Ferritin Total Bilirubin AST ALT Alkaline Phosphatase Total Protein Albumin Globulin Albumin/Globulin Ratio Procalcitonin TSH 0.615 Nasal Screen MRSA (PCR) CMV Qnt PCR IU/mL Negative CMV Qnt PCR log IU/mL TNP EBC (Quant-PCR) Qual EBV Capsid Ag IgM Ab <36.0 11/14/22 11/14/22 11/15/22 03:44 13:32 03:30 WBC RBC Hgb Hct MCV MCH MCHC RDW Plt Count Neut % (Auto) Lymph % (Auto) Garza % (Auto) Eos % (Auto) Baso % (Auto) Lymph # (Auto) Garza # (Auto) Baso # (Auto) Total Counted Seg Neutrophils % Band Neutrophils % Lymphocytes % (Manual) Monocytes % (Manual) Neutrophils # (Manual) RBC Morphology Sodium Potassium Chloride Carbon Dioxide BUN Creatinine Estimated GFR BUN/Creatinine Ratio Glucose Calcium Ferritin 4210 H Total Bilirubin AST ALT Alkaline Phosphatase Total Protein Albumin Globulin Albumin/Globulin Ratio Procalcitonin TSH Nasal Screen MRSA (PCR) Not detected CMV Qnt PCR IU/mL Cancelled CMV Qnt PCR log IU/mL Cancelled EBC (Quant-PCR) Qual Cancelled EBV Capsid Ag IgM Ab 11/15/22 11/15/22 11/15/22 04:27 04:27 04:27 WBC 16.1 H RBC 3.55 L Hgb 10.5 L Hct 31.5 L MCV 88.8 MCH 29.7 MCHC 33.4 RDW 13.7 Plt Count 193 Neut % (Auto) Not Reportable Lymph % (Auto) Not Reportable Garza % (Auto) Not Reportable Eos % (Auto) Not Reportable Baso % (Auto) Not Reportable Lymph # (Auto) Not Reportable Garza # (Auto) Not Reportable Baso # (Auto) Not Reportable Total Counted 100 Seg Neutrophils % 46.0 Band Neutrophils % 43.0 H Lymphocytes % (Manual) 9.0 L Monocytes % (Manual) 2.0 Neutrophils # (Manual) 78052 H RBC Morphology Normal morphology Sodium 137 Potassium 3.3 L Chloride 103 Carbon Dioxide 26 BUN 8 L Creatinine 0.87 Estimated GFR > 60 BUN/Creatinine Ratio 9.2 Glucose 95 Calcium 7.6 L Ferritin Total Bilirubin 0.4 AST 43 ALT 23 Alkaline Phosphatase 87 Total Protein 5.4 L Albumin 2.7 L Globulin 2.7 Albumin/Globulin Ratio 1.0 Procalcitonin 7.02 H TSH Nasal Screen MRSA (PCR) CMV Qnt PCR IU/mL CMV Qnt PCR log IU/mL EBC (Quant-PCR) Qual EBV Capsid Ag IgM Ab Exam Vital Signs (past 8 hours): - 11/15/22 00:00 11/15/22 01:00 11/15/22 03:46 Temperature 98.6 F Pulse Rate 122 H 124 H 135 H Respiratory Rate 23 24 32 H Blood Pressure 104/58 L Pulse Oximetry 91 92 92 Oxygen Delivery Method Nasal Cannula Oxygen Flow Rate 2 2 2 Fraction of Inspired Oxygen 28 11/15/22 04:00 Temperature 98.4 F Pulse Rate 124 H Respiratory Rate 20 Blood Pressure 97/56 L Pulse Oximetry 96 Oxygen Delivery Method Oxygen Flow Rate Fraction of Inspired Oxygen Fraction of Inspired Oxygen 28 SaO2/FiO2 Ratio 328 Oxygen Delivery Method Nasal Cannula Oxygen Flow Rate 2 Const General: cooperative, comfortable and well developed Other: not in distress Assessment & Plan Assessment and plan (1) Juvenile arthritis: Status: Acute (2) Tachycardia: Status: Acute (3) Sepsis: Status: Acute (4) Bronchial stenosis, left: Problem details: Focal PERRI and associated air trapping, only on expiratory imaging Status: Acute (5) Fever of unknown origin: Status: Acute Plan I had detailed multidisciplinary rounds using both video and audio interface with the nurses. There was no active issues presently but the septic work-up so far has been unremarkable with no evidence of obvious sepsis in terms of pneumonia abdomen and urine bacteremia skin soft tissue infection as well as meningitis. Patient is afebrile. The WBC count is 16,000. Patient is not on steroids and only on Rocephin. The question now is whether this represents juvenile rheumatoid arthritis flare with possible mas. The ferritin is elevated at 4210 and therefore we will proceed with ESR C-reactive protein D-dimer and LFTs to confirm mas. So far the teachers' assistant has discouraged the use of high-dose steroids. I have also requested the nurse to once again contact the teachers' assistant with the latest labs. Assessment & Plan narrative: Assessment & Plan narrative: Abdullahi Aburto is a 22-year-old male who has a history of systemic juvenile idiopathic arthritis, monoclonal gannopathy of undetermined significance (MGUS), MAS (DX [id number]), mild persistent asthma.? Was on immunosuppressants for period of time but subsequently these were discontinued it he has not been on any immunosuppressant since 2013.? Presented to ED for 5 days of fevers and body aches.? He is not having any joint pain. Patient admitted to the ICU with e/ICU consult once he is brought up to the unit for fever of unknown etiology in the setting of systemic juvenile idiopathic arthritis with a history of MAS and MGUS.? Patient is requiring hospitalization as he is at significant risk of developing MAS vs HLH both of which can result in significantly high risk of mortality and morbidity. ?1. Fever of unknown etiology, acute, present on admission -ED patient presented with a fever 103.2, 108/56, tachycardic 149, tachypneic 28, 95% on room air. -admit temp 100.5? 100/50 tachycardic 113, mildly tachypneic 21, O2 saturation 94% on room air.? -H&H 11.8/35.3, glucose 134, albumin 3.2, total protein 5.9, procalcitonin 3.7, urine:+ urobilinogen 4.0-culture pending, respiratory panel negative.? -CXR negative for acute cardiopulmonary process, -EKG: ST ventricular rate [address] or T-wave changes. The following labs are used in the diagnosis or exclusion of MAS vs.HLH in [facility]: WBC 6.7, PLT 168 (>181,000), AST 24 (<48), fibrinogen 679 (<360), ferritin 1480 (>684).? LDH 235.? Adenovirus negative -ED Rocephin and vancomycin -initiated Rocephin on admit-blood cultures and further work up pending -ordered triglycerides, CRP, ESR, EBV, CMV.? Blood cultures and urine cultures are pending 2. Systemic juvenile idiopathic arthritis, with a history of MAS, acute on chronic, present on admission -Hx of monoclonal gannopathy of undetermined significance (MGUS) ED Dr. Singh consult with Dr. Hutchison rheumatology [facility]:Hospitalist did have a discussion with Dr. Hutchison with rheumatology at the [facility].? He stated that since the patient is not on any immunosuppressant medication given his labs today he recommended treating the patient like any other non immunocompromised individuals in this situation.? That would mean this case blood cultures and antibiotics until either a source of infection is found or blood cultures were negative and the patient started to feel better.??He did not recommend starting any steroids.?? -echo ordered to rule out pericardial effusion . Sepsis Patient presents with symptoms and signs of sepsis, inclusive of tachycardia, fever, bandemia (up from 16% to 33% today), and generalized systemic symptoms.? Procalcitonin significantly elevated at 9.66, raising concern for bacterial infection.? Thus far cultures are negative.? No localizing findings on any imaging or testing that has been done to date.? No back pain to raise concern for diskitis or osteomyelitis.? No GI symptoms.? He has resolution of his sore throat.? No arthralgias and improved myalgias.? Overall, his fever curve is improving.? On admission his temp was a 103.2?.? T-max in last 24 hours is 100.6.? Continue Rocephin for now.? Will obtain a CT of the abdomen and pelvis to rule out occult pathology.? However I have low suspicion as he is not having any abdominal discomfort, nausea, or vomiting.? There is no indication of broaden coverage for now.? Tele ICU consultation obtained and Dr. Combs agrees. 2. Sinus tachycardia Patient has had resting heart rates in the 120s to 130s.? Suspect this is primarily physiologic.? Echocardiogram did not reveal any wall motion abnormalities or evidence of cardiomyopathy. 3. Asthma, persistent Patient remains on Singulair, albuterol.? Flovent was held and he is receiving budesonide nebulizers.? Although he is tachypneic and mildly grunting (suspect auto-PEEP process), he does not have evidence of asthma exacerbation.? Specifically he has no evidence of wheezing.? CT pulmonary angiogram was done yesterday and revealed no infiltrates, effusions, or pulmonary emboli.? For now will continue supportive care.? He is not requiring oxygen.? Empirically covered with Rocephin as noted. Time Spent With Patient Critical Care time: I spent a total of [35] minutes of critical care time on this patient's care today; this time is exclusive of procedural time.
[2022-11-15 08:03] LABS: Ferritin 7770 ng/mL (18-464)
[2022-11-15] MEDS: POTASSIUM CHLORIDE 20 MEQ TAB 40 MEQ PO ×2 (08:14→13:21)
[2022-11-15] MEDS: MONTELUKAST 10 MG TABLET PO (08:14)
[2022-11-15] MEDS: ENOXAPARIN 40 MG/0.4 ML SYRINGE SUBCUT (08:14)
[2022-11-15] MEDS: BUDESONIDE 0.5 MG/2 ML NEB INH ×2 (08:30→19:35)
--- NOTE | 2022-11-15 08:50 | DI.RAD.S_ITS ---
PROCEDURE: XR CHEST 1V INDICATIONS: Sepsis, hypoxia TECHNIQUE: One view of the chest was acquired. COMPARISON: [facility], CR, XR CHEST 1V, 11/12/2022, 22:21. FINDINGS: Heart size enlarged. No significant vascular congestion. Blunting the left costophrenic angle associated with atelectasis and infiltrate is accentuated by low lung volumes IMPRESSION: Left pleural effusion with associated atelectasis and infiltrate. Cardiomegaly. Approved by: Henry Hamm M.D. on 11/15/2022 at 9:26
--- NOTE | 2022-11-15 09:38 | DI.ECHO.S_ITS ---
[facility] +---------+ : : [address] [place] : : : : [id number] : : : : Phone: [phone]---------+ Echocardiogram Report + + :Name: SIMRAN FIGUEROA Study Date: 11/15/2022 Height: 69 in : :[facility] ReadingLocation: Weight: 175 lb : : Gender: Male BSA: 2.0 m2 : :: 2000 Age: 22 yrs BP: 105/68 mmHg: :Reason For Study: PERICARDIAL EFFUSION : :Ordering Physician: CANDI, : :BRYAN Performed By: Moira Burk : :Referring: BRYAN CHRISTOPHER : + + Interpretation Summary The ejection fraction is estimated to be 40-45%. Right ventricular systolic function is mild to moderately reduced. The IVC appears to have reduced respiratory collapse, suggesting mildly elevated central venous pressure. There is a moderate pericardial effusion noted mostly near the left ventricle and right atrium with much less fluid noted near the RV and apex.. There is some respiratory variation across the AV valves however there is no evidence of RV or RA collapse. Procedure: Images were not obtained from all of the standard acoustic windows due to the limited scope of the study. The study quality was technically good. Comparison is made with the echocardiogram of 11/13/2022. The patient was in sinus tachycardia with heart rates between 129-130 bpm during the exam. Left Ventricle: The left ventricle is normal in size. There is normal left ventricular wall thickness. The ejection fraction is estimated to be 40-45%. Right Ventricle: The right ventricle is normal size. Right ventricular systolic function is mild to moderately reduced. Atria: Both atria are normal in size. Mitral Valve: The mitral valve is normal. Tricuspid Valve: The tricuspid valve is normal. Pulmonic Valve: The pulmonic valve leaflets are thin and pliable; valve motion is normal. Great Vessels: The IVC has a measurement of 1.9 compared to 1.6 on 11/13/2022 mm. The IVC appears to have reduced respiratory collapse, suggesting mildly elevated central venous pressure. Pericardium/ Pleura There is a moderate pericardial effusion noted. The effusion is mostly near the left ventricle and right atrium with much less fluid noted near the RV and apex. MMode/2D Measurements & Calculations LVIDd: 4.6 cm IVC diam: 1.9 cm LVIDs: 3.5 cm FS: 22.8 % IVSd: 0.93 cm LVPWd: 1.1 cm LV green. diameter/BSA (cm/m^2): 2.3 LV sys. diameter/BSA (cm/m^2): 1.8 Reading Physician:01:04 PM
[2022-11-15 10:21] LABS: D Dimer 23671 ng/ml (<500)
[2022-11-15 10:29] LABS: Erythrocyte Sedimentation Rate 76 MM/HR (0-15)
[2022-11-15 10:54] LABS: C-Reactive Protein Quant 40.2 mg/dL (<1.0)
--- NOTE | 2022-11-15 11:22 | PM.PN.1 ---
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 Evaluation thus far has included blood and urine cultures which are negative to date, mono test which was negative, strep testing which was negative, chest x-ray which was negative, echocardiogram which revealed no concern for vegetation and an EF of 50 +/-5%, CT angiogram which was negative, LP which is negative to date, and a negative respiratory viral panel.? CT of the abdomen and pelvis revealed multiple nonspecific findings, including periportal edema, peripancreatic fat stranding, prominent mesenteric lymph nodes, and a small amount of pelvic free fluid. Additionally, he has not had any localizing symptoms. Dr. Hutchison, [facility] rheumatology was consulted by telephone at the time of admission and felt the patient did not have concerning symptoms for recurrent MEL/MAS and recommended not to treat with empiric steroids. I personally contacted him on November 14 with an update and he continued to feel the patient did not meet criteria for recurring MAS. He continued to recommend avoiding the use of steroids as he felt it may mask/complicate the patient's clinical picture. Today, patient reports his pleuritic chest pain has improved. He continues to deny myalgias or arthralgias. He has developed a small amount of clear to yellowish sputum. No constipation or diarrhea. No headache. No back pain. No rash, no neck pain. His mother is at bedside.? ? Exam Vital Signs (past 8 hours): - 11/15/22 03:46 11/15/22 04:00 11/15/22 08:00 Temperature 98.4 F 98.3 F Pulse Rate 135 H 124 H 110 H Respiratory Rate 32 H 20 32 H Blood Pressure 97/56 L 105/67 Pulse Oximetry 92 96 95 Oxygen Delivery Method Nasal Cannula Oxygen Flow Rate 2 2 Fraction of Inspired Oxygen 28 11/15/22 08:30 11/15/22 07:00 Temperature Pulse Rate 125 H Respiratory Rate 30 H Blood Pressure Pulse Oximetry 91 Oxygen Delivery Method Nasal Cannula Nasal Cannula Oxygen Flow Rate 2.5 Fraction of Inspired Oxygen 29 Fraction of Inspired Oxygen 29 SaO2/FiO2 Ratio 313 Oxygen Delivery Method Nasal Cannula Oxygen Flow Rate 2.5 Narrative Exam Narrative: GEN:? Ill-appearing adult male, Alert and oriented x 3, pale HEENT:NC, Face symmetric CHEST: Respiratory excursions symmetric, mildly tachypneic/shallow respirations, CTAB, mildly diminished in the bases CV:? Tachycardic with regular rhythm, no M/R/G ABD: Slightly firm, mildly distended, NT, BT present in all 4 quadrants, no organomegaly or masses EXTR: warm, well perfused, no C/C, generalized swelling noted to the hands and feet SKIN: warm and dry, no rash NEURO: Alert and oriented x 3, nonfocal Objective Labs 11/15/22 04:27 11/15/22 04:27 Labs: Laboratory Results - last 24 hr 11/13/22 11/14/22 11/14/22 05:04 03:44 03:44 WBC RBC Hgb Hct MCV MCH MCHC RDW Plt Count Neut % (Auto) Lymph % (Auto) [place] % (Auto) Eos % (Auto) Baso % (Auto) Lymph # (Auto) [place] # (Auto) Baso # (Auto) Total Counted Seg Neutrophils % Band Neutrophils % Lymphocytes % (Manual) Monocytes % (Manual) Neutrophils # (Manual) RBC Morphology ESR D-Dimer Sodium Potassium Chloride Carbon Dioxide BUN Creatinine Estimated GFR BUN/Creatinine Ratio Glucose Calcium Ferritin 4210 H Total Bilirubin AST ALT Alkaline Phosphatase C-Reactive Protein Total Protein Albumin Globulin Albumin/Globulin Ratio Procalcitonin TSH 0.615 Nasal Screen MRSA (PCR) CMV Qnt PCR IU/mL Negative CMV Qnt PCR log IU/mL TNP EBC (Quant-PCR) Qual 11/14/22 11/15/22 11/15/22 13:32 03:30 04:27 WBC 16.1 H RBC 3.55 L Hgb 10.5 L Hct 31.5 L MCV 88.8 MCH 29.7 MCHC 33.4 RDW 13.7 Plt Count 193 Neut % (Auto) Not Reportable Lymph % (Auto) Not Reportable [place] % (Auto) Not Reportable Eos % (Auto) Not Reportable Baso % (Auto) Not Reportable Lymph # (Auto) Not Reportable [place] # (Auto) Not Reportable Baso # (Auto) Not Reportable Total Counted 100 Seg Neutrophils % 46.0 Band Neutrophils % 43.0 H Lymphocytes % (Manual) 9.0 L Monocytes % (Manual) 2.0 Neutrophils # (Manual) 94972 H RBC Morphology Normal morphology ESR D-Dimer Sodium Potassium Chloride Carbon Dioxide BUN Creatinine Estimated GFR BUN/Creatinine Ratio Glucose Calcium Ferritin Total Bilirubin AST ALT Alkaline Phosphatase C-Reactive Protein Total Protein Albumin Globulin Albumin/Globulin Ratio Procalcitonin TSH Nasal Screen MRSA (PCR) Not detected CMV Qnt PCR IU/mL Cancelled CMV Qnt PCR log IU/mL Cancelled EBC (Quant-PCR) Qual Cancelled 11/15/22 11/15/22 11/15/22 04:27 04:27 04:27 WBC RBC Hgb Hct MCV MCH MCHC RDW Plt Count Neut % (Auto) Lymph % (Auto) [place] % (Auto) Eos % (Auto) Baso % (Auto) Lymph # (Auto) [place] # (Auto) Baso # (Auto) Total Counted Seg Neutrophils % Band Neutrophils % Lymphocytes % (Manual) Monocytes % (Manual) Neutrophils # (Manual) RBC Morphology ESR D-Dimer Sodium 137 Potassium 3.3 L Chloride 103 Carbon Dioxide 26 BUN 8 L Creatinine 0.87 Estimated GFR > 60 BUN/Creatinine Ratio 9.2 Glucose 95 Calcium 7.6 L Ferritin 7770 H Total Bilirubin 0.4 AST 43 ALT 23 Alkaline Phosphatase 87 C-Reactive Protein Total Protein 5.4 L Albumin 2.7 L Globulin 2.7 Albumin/Globulin Ratio 1.0 Procalcitonin 7.02 H TSH Nasal Screen MRSA (PCR) CMV Qnt PCR IU/mL CMV Qnt PCR log IU/mL EBC (Quant-PCR) Qual 11/15/22 11/15/22 11/15/22 09:55 09:55 09:55 WBC RBC Hgb Hct MCV MCH MCHC RDW Plt Count Neut % (Auto) Lymph % (Auto) [place] % (Auto) Eos % (Auto) Baso % (Auto) Lymph # (Auto) [place] # (Auto) Baso # (Auto) Total Counted Seg Neutrophils % Band Neutrophils % Lymphocytes % (Manual) Monocytes % (Manual) Neutrophils # (Manual) RBC Morphology ESR 76 H D-Dimer 06735 H Sodium Potassium Chloride Carbon Dioxide BUN Creatinine Estimated GFR BUN/Creatinine Ratio Glucose Calcium Ferritin Total Bilirubin AST ALT Alkaline Phosphatase C-Reactive Protein 40.2 H Total Protein Albumin Globulin Albumin/Globulin Ratio Procalcitonin TSH Nasal Screen MRSA (PCR) CMV Qnt PCR IU/mL CMV Qnt PCR log IU/mL EBC (Quant-PCR) Qual PFSH Medical History (Updated 11/14/22 @ 09:46 by Pipe Combs MD) Asthma Bronchial stenosis, left Juvenile idiopathic arthritis 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 Sepsis Yesterday: Patient presents with symptoms and signs of sepsis, inclusive of tachycardia, fever, bandemia (up from 16% to 33% today), and generalized systemic symptoms.? Procalcitonin significantly elevated at 9.66, raising concern for bacterial infection.? Thus far cultures are negative.? No localizing findings on any imaging or testing that has been done to date.? No back pain to raise concern for diskitis or osteomyelitis.? No GI symptoms.? He has resolution of his sore throat.? No arthralgias and improved myalgias.? Overall, his fever curve is improving.? On admission his temp was a 103.2?.? T-max in last 24 hours is 100.6.? Continue Rocephin for now.? Will obtain a CT of the abdomen and pelvis to rule out occult pathology.? However I have low suspicion as he is not having any abdominal discomfort, nausea, or vomiting.? There is no indication of broaden coverage for now.? Tele ICU consultation obtained and Dr. Combs agrees. Today: White blood cell count has increased today from 10.9-16.1. Band count has also increased from 33% to 43%. All cultures remain negative to date. Procalcitonin has improved from 9.66-7.02. Fever curve has improved and T-max was 99.9? in the last 24 hours. He remains on empiric Rocephin. As noted above CT of the abdomen pelvis did not reveal any infectious etiology. School Lunch Monitor raised concern that there has been no identified etiology of an infection. He is concerned this may reflect more of a rheumatologic process. He recommends additional testing inclusive of sedimentation rate, CRP, and D-dimer. If those are continuing to rise, he recommends consideration of transferring to a higher level of care for rheumatologic consultation. 2. Sinus tachycardia Patient has had resting heart rates in the 120s to 130s.? Suspect this is primarily physiologic.? Echocardiogram did not reveal any wall motion abnormalities or evidence of cardiomyopathy. There was a question of a mild pericardial effusion seen on his abdominal pelvic CT yesterday. Given his persistent tachycardia will get a limited echocardiogram to evaluate for underlying worsening pericardial effusion 3. Asthma, persistent Patient remains on Singulair, albuterol.? Flovent was held and he is receiving budesonide nebulizers.? He remains tachypneic but does not have any evidence of asthma exacerbation. Specifically he has no evidence of wheezing.? CT pulmonary angiogram performed on November 13 revealed no infiltrates, effusions, or pulmonary emboli.? He is requiring oxygen at 2.5 L this morning..? Empirically covered with Rocephin as noted. Will obtain a sputum culture if he is able to produce any sputum. Additionally portable chest x-ray has been ordered. 4.History of juvenile idiopathic arthritis/MGUS/MAS Spoke yesterday with Rheumatology at the [facility], Dr. Hutchison.? He reported the patient's mild leukocytosis, and normal LFTs are reassuring.? He noted recurrent MAS would present as rapidly decreasing cell lines, rapidly increasing LFTs, and rising ferritin levels.? Based on reviewing patient's present labs and clinical picture, he again reiterated he did not feel the patient had a need for steroid treatment. EBV IgM and IgG were sent his recommendation. Ferritin was repeated yesterday and had increased from 1482 days prior to 4210 yesterday. Today his ferritin has risen again to 7710. Per hot water heater installer recommendation, will obtain an ESR, CRP, and D-dimer. He feels that if these are rising it is more indicative of a rheumatologic process. 5. Normocytic anemia Mild.? Hemoglobin was 11.8 on admission.? Hemoglobin down from 11.3 yesterday to 10.5 today, likely secondary to hemodilution. No evidence of bleeding. Will monitor.? 6. Hypoalbuminemia On presentation, albumin was mildly low at 3.2.? It i remains at 2.7 today.? Suspect this is acute and secondary to his illness.? He is at risk for 3rd spacing fluids. He ate 1 meal yesterday. He is not had much of an appetite. I did encourage him to work on improving his nutritional intake as well. Code status Full Prophylaxis On Lovenox Disposition ICU Time Spent With Patient Critical Care time: I spent a total of [] minutes of critical care time on this patient's care today; this time is exclusive of procedural time.
--- NOTE | 2022-11-15 15:44 | P.EN_ITS ---
Event Note Event Note (Rapid Response, Code, or fall): Notified by RN patient limited TTE showed moderate pericardial effusion. TTE report reviewed -> moderate pericardial effusion with no RA/RV collapse and no mention of mitral inflow variation. Patient is extremely anxious and agtiated at this time. Per discussion with Dr. Parker, [facility] store operations specialist recommended against systemic steroid and continue sepsis treatment. Given moderate pericardial effusion with concern for early tamponade, would recommend transfer to tertiary care for immediate cardiology evaluation and close monitor for potential pericardiocentesis. Would hold off on diuresis to avoid risk of preload reduction. Recommend start low dose precedex for severe anxiety. D/w Dr. Parker and RN at bedside.
[2022-11-15] MEDS: methylPREDNISolone 125 MG/2 ML VIAL IV (18:08)
--- NOTE | 2022-11-15 20:08 | P.DS_ITS ---
History of Present Illness History of Present Illness Date Patient Seen: 11/15/22 Chief complaint: Viral Symptoms Narrative: Abdullahi Aburto is a 22-year-old male who has a history of eczema, systemic juvenile idiopathic arthritis, monoclonal gannopathy of undetermined significance (MGUS), MAS, mild persistent asthma.? This was diagnosed when he was 11 years old after presenting with fevers and joint pain.? He was admitted to the hospital for several days.? Had an ICU stay.? 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 Patient was followed by pediatric Rheumatology at [facility].? Was on immu nosuppressants for period of time but subsequently these were discontinued it he has not been on any immunosuppressant since 2013.? He has also subsequently been discharged from the pediatric rheumatology clinic.? 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 He does have a history of asthma.? Is on daily medications for this.? Is here for evaluation of approximately 5 days of fevers, chills,? and body aches.? Midsternal chest pressure with deep breathing, just generalized diffuse all-over body tenderness aches.? He is not having any joint pain.? He does have a sore throat and a slight headache but no neck pain.? No chest pain.? Does have a cough.? No abdominal pain.? No nausea vomiting.? No urinary symptoms.? No change in bowel habits.? No skin rashes.? Is having some mild flare of eczema to the right AC. Patient has been taking Tylenol and ibuprofen.? He was seen at an outside facility a couple days ago where he was tested for COVID/flu which were negative.? He is not on any antibiotics.? Comes in the emergency department today because he is had continued symptoms in his starting to feel worse.? In ED patient presented with a fever 103.2, 108/56, tachycardic 149, tachypneic 28, 95% on room air.? Patient states that he is feeling improved from when he 1st came to the ED department, his mother is at bedside. ?On admit patient denies headachechanges in vision, difficulty swallowing, speech impairment, numbness, tingling, difficulty with ambulation, recent falls, head injury, LOC, cough, recent exposure to illness, abdominal pain, urinary incontinence/retention, dysuria, frequency, urgency, hematuria, bowel changes, constipation, incontinence, melena,? recent changes to medication, illness, injury, or trauma. On admit temp 100.5? 100/50 tachycardic 113, mildly tachypneic 21, O2 saturation 94% on room air.? H&H 11.8/35.3, glucose 134, albumin 3.2, total protein 5.9, procalcitonin 3.7, urine:+ urobilinogen 4.0-culture pending, respiratory panel negative.? CXR negative for acute cardiopulmonary process, EKG: ST ventricular rate [address] or T-wave changes. The following labs are used in the diagnosis or exclusion of MAS vs.HLH in IJA: WBC 6.7, PLT 168 (>181,000), AST 24 (<48), fibrinogen 679 (<360), ferritin 1480 (>684).? LDH 235.? Adenovirus negative Dr. Singh in the ED did consult with rheumatology Dr. Montoya @ .? Patient admitted for fever of unknown etiology/origin in the setting of IJA, concern for MAS macrophage activation syndrome/HLH. Discharge Providers Provider Date of admission: 11/13/22 03:40 Discharge Date: 11/15/22 Consults: 11/13/22 04:11 Consult to Tele-communications tower climber Routine Comment: Consulting Provider: [employer] Reason for consultation: Coagulation Operator services Has provider been notified: No Discharge provider: Yari Parker MD Summary Hospital Course Hospital Course: 22-year-old male with asthma, eczema, and remote history of systemic juvenile idiopathic arthritis, MGUS, and macrophage activation syndrome (off immunosuppressive therapy for 10 years) who is presently hospital day 2 admitted with acute febrile illness of unclear etiology.? Evaluation thus far has i ncluded blood and urine cultures which are negative to date, mono test which was negative, strep testing which was negative, chest x-ray which was negative, echocardiogram which revealed no concern for vegetation and an EF of 50 +/-5%, CT angiogram which was negative, LP which is negative to date, and a negative respiratory viral panel.? CT of the abdomen and pelvis revealed multiple nonspecific findings, including periportal edema, peripancreatic fat stranding, prominent mesenteric lymph nodes, and a small amount of pelvic free fluid.? Additionally, he has not had any localizing symptoms.? Dr. Hutchison, [facility] rheumatology was consulted by telephone at the time of admission and felt the patient did not have concerning symptoms for recurrent MEL/MAS and recommended not to treat with empiric steroids.? I personally contacted him on November 14 with an update and he continued to feel the patient did not meet criteria for recurring MAS.? He continued to recommend avoiding the use of steroids as he felt it may mask/complicate the patient's clinical picture. He did recommend monitoring ferritin, LFTs and CBC clinically. Ferritin showed an increase from 1480 on admission to 4210 yesterday. Tele communications tower climber consult was obtained on November 14, 2022 with recommendations for continuing empiric Rocephin and monitoring status. All cultures remain negative to date. There has been no evidence of focal infection. This morning, patient had persistent tachycardia and tachypnea. Given his low albumin state and overall evidence of 3rd spacing, chest x-ray was performed. Heart size appeared enlarged and there was a left pleural effusion. Limited stat echo was obtained to evaluate for pericardial effusion. Results revealed a moderate new pericardial effusion that was not present on prior echocardiogram. Additionally EF was down from 50% to 40%. Inflammatory markers were rechecked and revealed that CRP increased from 22.5-40.2, Sedimentation rate increased from 51-76, D-dimer increased from 4454-23,671. Ferritin had also increased from 2601-8118. Given the patient's overall worsening clinical status in conjunction with an evolving pericardial effusion, efforts were made to transfer patient to an academic center. [facility] was contacted but felt patient should be [facility] at [facility] [place]. [facility] was contacted and they would not accept the patient as he was not an active patient with them and was an adult. [facility] was contacted for transfer and after conversation with Hematology, it was recommended rheumatology be re consulted on potential transfer. However at that time did not have any beds. Additional efforts were made to transfer to a higher level of care regionally but unfortunately no beds were available at [facility] in [place], [facility], [facility], or [facility]. I was able to contact [facility] and spoke with both on-call Cardiology and communications tower climber and patient was accepted for transfer. Unfortunately there were no ICU beds available. Ultimately [facility] was able to accommodate and patient is being life flighted to [facility] for ICU admission. He is discharged in critical condition. Status at Discharge Cognitive/behavioral status at discharge: at baseline, oriented Overall status at discharge: patient is not back to baseline Exam Vital Signs (past 8 hours): - 11/15/22 13:59 11/15/22 12:30 11/15/22 13:00 Temperature 98.8 F Pulse Rate 125 H 127 H 125 H Respiratory Rate 27 H 35 H 35 H Blood Pressure 104/62 Pulse Oximetry 97 91 97 Oxygen Delivery Method Oxygen Flow Rate Fraction of Inspired Oxygen 11/15/22 13:28 11/15/22 13:28 11/15/22 14:52 Temperature Pulse Rate 123 H 119 H Respiratory Rate 37 H Blood Pressure 104/62 Pulse Oximetry 97 87 L Oxygen Delivery Method Oxygen Flow Rate Fraction of Inspired Oxygen 11/15/22 15:00 11/15/22 15:18 11/15/22 15:18 Temperature Pulse Rate 156 H 150 H Respiratory Rate 41 H Blood Pressure 110/82 Pulse Oximetry 84 L 97 Oxygen Delivery Method Oxygen Flow Rate Fraction of Inspired Oxygen 11/15/22 15:30 11/15/22 16:00 11/15/22 16:30 Temperature Pulse Rate 152 H 153 H Respiratory Rate 46 H 48 H Blood Pressure 121/79 Pulse Oximetry 96 96 Oxygen Delivery Method Oxygen Flow Rate Fraction of Inspired Oxygen 11/15/22 16:30 11/15/22 19:35 Temperature Pulse Rate 156 H 133 H Respiratory Rate 50 H 30 H Blood Pressure Pulse Oximetry 99 93 Oxygen Delivery Method Simple Mask Oxygen Flow Rate 4.5 Fraction of Inspired Oxygen 38 Fraction of Inspired Oxygen 38 SaO2/FiO2 Ratio 244 Oxygen Delivery Method Simple Mask Oxygen Flow Rate 4.5 Objective Labs 11/15/22 04:27 11/15/22 04:27 Labs: Laboratory Results - last 24 hr 11/15/22 11/15/22 11/15/22 03:30 04:27 04:27 WBC 16.1 H RBC 3.55 L Hgb 10.5 L Hct 31.5 L MCV 88.8 MCH 29.7 MCHC 33.4 RDW 13.7 Plt Count 193 Neut % (Auto) Not Reportable Lymph % (Auto) Not Reportable Floyd % (Auto) Not Reportable Eos % (Auto) Not Reportable Baso % (Auto) Not Reportable Lymph # (Auto) Not Reportable Floyd # (Auto) Not Reportable Baso # (Auto) Not Reportable Total Counted 100 Seg Neutrophils % 46.0 Band Neutrophils % 43.0 H Lymphocytes % (Manual) 9.0 L Monocytes % (Manual) 2.0 Neutrophils # (Manual) 10111 H RBC Morphology Normal morphology ESR D-Dimer Sodium 137 Potassium 3.3 L Chloride 103 Carbon Dioxide 26 BUN 8 L Creatinine 0.87 Estimated GFR > 60 BUN/Creatinine Ratio 9.2 Glucose 95 Calcium 7.6 L Ferritin Total Bilirubin 0.4 AST 43 ALT 23 Alkaline Phosphatase 87 C-Reactive Protein Total Protein 5.4 L Albumin 2.7 L Globulin 2.7 Albumin/Globulin Ratio 1.0 Procalcitonin Nasal Screen MRSA (PCR) Not detected 11/15/22 11/15/22 11/15/22 04:27 04:27 09:55 WBC RBC Hgb Hct MCV MCH MCHC RDW Plt Count Neut % (Auto) Lymph % (Auto) Floyd % (Auto) Eos % (Auto) Baso % (Auto) Lymph # (Auto) Floyd # (Auto) Baso # (Auto) Total Counted Seg Neutrophils % Band Neutrophils % Lymphocytes % (Manual) Monocytes % (Manual) Neutrophils # (Manual) RBC Morphology ESR D-Dimer 18238 H Sodium Potassium Chloride Carbon Dioxide BUN Creatinine Estimated GFR BUN/Creatinine Ratio Glucose Calcium Ferritin 7770 H Total Bilirubin AST ALT Alkaline Phosphatase C-Reactive Protein Total Protein Albumin Globulin Albumin/Globulin Ratio Procalcitonin 7.02 H Nasal Screen MRSA (PCR) 11/15/22 11/15/22 09:55 09:55 WBC RBC Hgb Hct MCV MCH MCHC RDW Plt Count Neut % (Auto) Lymph % (Auto) Floyd % (Auto) Eos % (Auto) Baso % (Auto) Lymph # (Auto) Floyd # (Auto) Baso # (Auto) Total Counted Seg Neutrophils % Band Neutrophils % Lymphocytes % (Manual) Monocytes % (Manual) Neutrophils # (Manual) RBC Morphology ESR 76 H D-Dimer Sodium Potassium Chloride Carbon Dioxide BUN Creatinine Estimated GFR BUN/Creatinine Ratio Glucose Calcium Ferritin Total Bilirubin AST ALT Alkaline Phosphatase C-Reactive Protein 40.2 H Total Protein Albumin Globulin Albumin/Globulin Ratio Procalcitonin Nasal Screen MRSA (PCR) [facility] Medical History (Updated 11/14/22 @ 09:46 by Ppie Combs MD) Asthma Bronchial stenosis, left Juvenile idiopathic arthritis 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
--- NOTE | 2022-11-15 20:32 | PM.ICURNDS ---
- Date Patient Seen: 11/15/22 Time Patient Seen: 20:32 :: This patient was seen via real time interactive two-way audiovisual telecommunication. Note: Repeat TTE showed moderate pericardial effusion. D/w primary bedside team and patient is accepted to [facility]. Vitals stable. Awaiting for transport. D/w bedside RN.
--- NOTE | 2022-11-15 23:42 | PC.NURSE ---
Pt. left the facility at 2327 via [employer]. Pt. is in stable condition, with pt's mother tagging along. Checked with charge nurse Lili regarding visitor's policy and answer was ok for mom to come but she has to stay in the room which i relayed to the pt's mother. Report given to [facility] and to [place] at [facility] with questions answered.
[2022-11-16 09:29] LABS: EBV EBNA Antibody IgG < 18.0 U/mL (0.0-17.9); EBV Virus IgG Ab < 18.0 U/mL (0.0-17.9); EBV Virus IgM Ab < 36.0 U/mL (0.0-35.9)
== END 2022-11-15 23:27 | disposition short-term general hospital (02) | DRG 872 ==
LOC: ED 11-13 03:38 → AC 11-13 03:40 → ICU 11-13 11:38
PROVIDERS: Family Medicine; Internal Medicine; Admitting Provider Nurse Practitioner Family; Emergency Provider Emergency Medicine; Referring Provider Emergency Medicine; Visit Provider Nurse Practitioner Family
DX: A41.9 Sepsis, unspecified organism (principal); I31.39 Other pericardial effusion (noninflammatory); J45.909 Unspecified asthma, uncomplicated; R00.0 Tachycardia, unspecified; D64.9 Anemia, unspecified; Z87.39 Personal history of other diseases of the musculoskeletal system and connective tissue; Z20.822 Contact with and (suspected) exposure to COVID-19
CPT/HCPCS: 36415; 71045; 71275; 74177; 80053; 81001; 82728; 82945; 83605; 83615; 83690; 83735; 84145; 84157; 84443; 84478; 85007; 85025; 85379; 85384; 85610; 85651; 85730; 86140; 86318; 86664; 86665; 87040; 87070; 87086; 87205; 87389; 87497; 87633; 87651; 87797; 87798; 89051; 93005; 93306; 93307; 94640; 96365; 96366; 96367; 99232; 99284; 99291; J0696; J1650; J2930; J3360; J7613; Q9967